=== PATIENT | female | born 1950 | race Caucasian/White ===

== ENCOUNTER 2023-01-18 18:03 | Emergency (ER) | payer MEDICARE, SELFPAY ==
[2023-01-18] VITALS (34 sets, daily range): BP systolic 139–201; BP diastolic 75–131; PULSE 74–101; RESP 22; TEMP 36.1; O2SAT 90–100
--- NOTE | 2023-01-18 18:34 | CRLHL7_ITS ---
For Patients: As a result of the Cures Act, medical imaging exams and procedure reports are released immediately into your electronic medical record. You may view this report before your referring provider. If you have questions, please contact your health care provider. INDICATION: Chest pain. TECHNIQUE: Chest 2 views. COMPARISON: None. FINDINGS: Cardiovascular and mediastinum: Heart size and vasculature are normal in caliber and appearance. Lungs and pleural spaces: Lungs are clear. No sign of infiltrate or mass. No sign of pleural effusion. No pneumothorax. Bones and soft tissues: No significant findings. IMPRESSION: No acute or significant findings. Dictated by Ramsey Valdez MD @ 01/18/2023 7:53:49 PM (Electronically Signed)
[2023-01-18 18:40] LABS: Lactate* 0.9 mmol/L (0.5-1.9)
[2023-01-18] MEDS: ASPIRIN 81 MG TAB.CHEW 324 MG PO (18:42)
--- NOTE | 2023-01-18 18:42 | ED.GENADULT ---
HPI - General Adult General Date Seen: 01/18/23 <Minerva Lagunas MD - Last Filed: 01/23/23 00:24> Chief complaint: Chest Pain <Minerva Lagunas MD - Last Filed: 01/23/23 00:24> Stated complaint: Chest Pain <Minerva Lagunas MD - Last Filed: 01/23/23 00:24> Time Seen by Provider: 01/18/23 18:04 <Minerva Lagunas MD - Last Filed: 01/23/23 00:24> Source: patient <Minerva Lagunas MD - Last Filed: 01/23/23 00:24> Mode of arrival: ambulatory <Minerva Lagunas MD - Last Filed: 01/23/23 00:24> Limitations: no limitations <Minerva Lagunas MD - Last Filed: 01/23/23 00:24> History of Present Illness HPI narrative: Patient is a 72-year-old woman who was sitting watching TV at around 3:30 a.m. or 4:00 a.m. when she developed dull central chest pain which has been persistent. It radiates to the back had perhaps a little bit up into her right neck. She says she feels like it is hard to catch her breath, pain is maybe a little bit pleuritic. She denies fever cough, unusual swelling in her legs, trauma, or other complaints. She does not have any prior history of chest pain or abdominal pain. She is generally reasonably be healthy, she has interstitial lung disease which is mild. She has high cholesterol, blood pressure is normally well controlled. She does not smoke. She drinks 4- 5 nights a week, 1-2 drinks. <Minerva Lagunas MD - Last Filed: 01/23/23 00:24> Related Data Home medications: Home Medications Medication Instructions Recorded Confirmed biotin 5,000 mcg chewable tablet mcg PO 01/06/23 01/06/23 calcium carbonate 600 mg calcium 1,200 mg PO QDAY 01/06/23 01/06/23 (1,500 mg) tablet cholecalciferol (vitamin D3) 25 25 mcg PO QDAY 01/06/23 01/06/23 mcg (1,000 unit) capsule diclofenac sodium 1 % topical gel topical 01/06/23 01/06/23 loratadine 10 mg tablet 10 mg PO QDAY 01/06/23 01/06/23 methylcellulose (laxative) 500 mg 1,000 mg PO QDAY 01/06/23 01/06/23 tablet omeprazole 20 mg capsule,delayed 20 mg PO QDAY 01/06/23 01/06/23 release piroxicam 20 mg capsule 20 mg PO QDAY 01/06/23 01/06/23 simvastatin 20 mg tablet 20 mg PO QHS 01/06/23 01/06/23 sumatriptan succinate 100 mg tablet 100 mg PO PRN 01/06/23 01/06/23 valacyclovir 1 gram tablet 2,000 mg PO PRN 01/06/23 01/06/23 <Minerva Lagunas MD - Last Filed: 01/23/23 00:24> Allergies/adverse reactions: Allergies Allergy/AdvReac Type Severity Reaction Status Date / Time No Known Drug Allergies Allergy Verified 01/18/23 20:01 <Minerva Lagunas MD - Last Filed: 01/23/23 00:24> Review of Systems Status of ROS: Reports: 10 or more systems reviewed and unremarkable except as noted in History and below <Minerva Lagunas MD - Last Filed: 01/23/23 00:24> [facility] Medical History: Medical History Health care directive on file ?Z78.9 - Other specified health status (ICD-10) History of right breast cancer (2017) ?Z85.3 - Personal history of malignant neoplasm of breast (ICD-10) <Minerva Lagunas MD - Last Filed: 01/23/23 00:24> Surgical History: Surgical History History of tubal ligation ?Z98.51 - Tubal ligation status (ICD-10) History of lumpectomy of right breast (2016) ?Z98.890 - Other specified postprocedural states (ICD-10) History of total left knee replacement ?Z96.652 - Presence of left artificial knee joint (ICD-10) History of total right knee replacement (03/31/18) ?Z96.651 - Presence of right artificial knee joint (ICD-10) <Minerva Lagunas MD - Last Filed: 01/23/23 00:24> Family History: Family History Sister Pulmonary embolism <Minerva Lagunas MD - Last Filed: 01/23/23 00:24> Social History: Social History Smoking Status: Former smoker Do you use any of these nicotine containing products: None Second hand tobacco smoke exposure: No How often do you have a drink containing alcohol: 4 or more times a week How many standard drinks containing alcohol do you have on a typical day: 1 or 2 How often do you have six or more drinks on one occasion: Never AUDIT-C Alcohol total score: 4 Non-prescribed substance use: denies use Little interest or pleasure in doing things: several days Feeling down, depressed, or hopeless: several days service: No <Minerva Lagunas MD - Last Filed: 01/23/23 00:24> Exam Narrative: Exam Narrative: Vital signs as noted above. In general, an alert, well-appearing patient. Head: Normocephalic, atraumatic. Eyes: Pupils are equal reactive. Extraocular movements are full. Conjunctivae are normal. ENT: Mucous membranes are moist. Throat is normal. Neck: Supple without lymphadenopathy. Heart: Regular rate and rhythm. No murmur or rub. Lungs: Clear bilaterally. No increased work of breathing, crackles or wheezes. Abdomen: Soft and nontender. No organomegaly. Extremities: Well perfused. No edema. No calf tenderness. Pulses intact. Neurologic: Patient is alert and oriented to person and place. Speech is fluent. Face is symmetric. Moves all extremities equally. Affect: Normal. Skin: Warm and dry. Well perfused. <Minerva Lagunas MD - Last Filed: 01/23/23 00:24> Const: Vital Signs, click to edit/add: Vital Signs - 24 hr 01/18/23 18:08 01/18/23 18:10 01/18/23 18:11 Temperature 96.9 F L Pulse Rate 88 82 Pulse Rate [Pulse Oximeter] 86 Respiratory Rate 22 Blood Pressure 168/131 H Blood Pressure [Le ft Upper Arm] 168/131 H Pulse Oximetry 98 100 99 Oxygen Delivery Me thod Room Air 01/18/23 18:15 01/18/23 18:30 01/18/23 18:32 Temperature Pulse Rate 77 81 77 Pulse Rate [Pulse Oximeter] Respiratory Rate Blood Pressure 183/94 H Blood Pressure [Le ft Upper Arm] Pulse Oximetry 97 92 Oxygen Delivery Me thod 01/18/23 18:34 01/18/23 18:51 01/18/23 18:52 Temperature Pulse Rate 81 Pulse Rate [Pulse Oximeter] Respiratory Rate Blood Pressure 201/98 H Blood Pressure [Le ft Upper Arm] Pulse Oximetry 98 90 Oxygen Delivery Me thod 01/18/23 19:00 01/18/23 19:02 01/18/23 19:15 Temperature Pulse Rate 76 74 75 Pulse Rate [Pulse Oximeter] Respiratory Rate Blood Pressure 195/97 H Blood Pressure [Le ft Upper Arm] Pulse Oximetry 96 97 96 Oxygen Delivery Me thod 01/18/23 19:30 01/18/23 19:32 01/18/23 19:33 Temperature Pulse Rate 80 82 80 Pulse Rate [Pulse Oximeter] Respiratory Rate Blood Pressure 173/82 H Blood Pressure [Le ft Upper Arm] Pulse Oximetry 96 96 96 Oxygen Delivery Me thod 01/18/23 19:54 01/18/23 19:55 01/18/23 20:00 Temperature Pulse Rate 90 87 90 Pulse Rate [Pulse Oximeter] Respiratory Rate Blood Pressure 188/97 H Blood Pressure [Le ft Upper Arm] Pulse Oximetry 94 95 94 Oxygen Delivery Me thod 01/18/23 20:02 01/18/23 20:11 01/18/23 20:15 Temperature Pulse Rate 89 85 83 Pulse Rate [Pulse Oximeter] Respiratory Rate Blood Pressure 166/88 H 157/89 H Blood Pressure [Le ft Upper Arm] Pulse Oximetry 93 95 95 Oxygen Delivery Me thod 01/18/23 20:22 Temperature Pulse Rate 84 Pulse Rate [Pulse Oximeter] Respiratory Rate Blood Pressure 158/85 H Blood Pressure [Le ft Upper Arm] Pulse Oximetry 95 Oxygen Delivery Me thod <Minerva Lagunas MD - Last Filed: 01/23/23 00:24> Vital Signs, click to edit/add: Vital Signs - 24 hr 01/18/23 18:08 01/18/23 18:10 01/18/23 18:11 Temperature 96.9 F L Pulse Rate 88 82 Pulse Rate [Pulse Oximeter] 86 Respiratory Rate 22 Blood Pressure 168/131 H Blood Pressure [Le ft Upper Arm] 168/131 H Pulse Oximetry 98 100 99 Oxygen Delivery Me thod Room Air 01/18/23 18:15 01/18/23 18:30 01/18/23 18:32 Temperature Pulse Rate 77 81 77 Pulse Rate [Pulse Oximeter] Respiratory Rate Blood Pressure 183/94 H Blood Pressure [Le ft Upper Arm] Pulse Oximetry 97 92 Oxygen Delivery Me thod 01/18/23 18:34 01/18/23 18:51 01/18/23 18:52 Temperature Pulse Rate 81 Pulse Rate [Pulse Oximeter] Respiratory Rate Blood Pressure 201/98 H Blood Pressure [Le ft Upper Arm] Pulse Oximetry 98 90 Oxygen Delivery Me thod 01/18/23 19:00 01/18/23 19:02 01/18/23 19:15 Temperature Pulse Rate 76 74 75 Pulse Rate [Pulse Oximeter] Respiratory Rate Blood Pressure 195/97 H Blood Pressure [Le ft Upper Arm] Pulse Oximetry 96 97 96 Oxygen Delivery Me thod 01/18/23 19:30 01/18/23 19:32 01/18/23 19:33 Temperature Pulse Rate 80 82 80 Pulse Rate [Pulse Oximeter] Respiratory Rate Blood Pressure 173/82 H Blood Pressure [Le ft Upper Arm] Pulse Oximetry 96 96 96 Oxygen Delivery Me thod 01/18/23 19:54 01/18/23 19:55 01/18/23 20:00 Temperature Pulse Rate 90 87 90 Pulse Rate [Pulse Oximeter] Respiratory Rate Blood Pressure 188/97 H Blood Pressure [Le ft Upper Arm] Pulse Oximetry 94 95 94 Oxygen Delivery Me thod 01/18/23 20:02 01/18/23 20:11 01/18/23 20:15 Temperature Pulse Rate 89 85 83 Pulse Rate [Pulse Oximeter] Respiratory Rate Blood Pressure 166/88 H 157/89 H Blood Pressure [Le ft Upper Arm] Pulse Oximetry 93 95 95 Oxygen Delivery Me thod 01/18/23 20:22 Temperature Pulse Rate 84 Pulse Rate [Pulse Oximeter] Respiratory Rate Blood Pressure 158/85 H Blood Pressure [Le ft Upper Arm] Pulse Oximetry 95 Oxygen Delivery Me thod <Jovtia Eagle MD - Last Filed: 01/18/23 21:29> Course Course Hospital Course: EKG done on arrival by my review shows a normal sinus rhythm, ventricular rate of 78. No acute ST segment changes. T-waves are unremarkable. Point of care troponin is pending. Would recommend a 2nd 2 hour troponin assuming the 1st is normal. D-dimer pending. She is hypertensive, diagnostic considerations include hypertensive urgency, angina, acute coronary syndrome, dissection, pulmonary embolism, pneumonia, pleural effusion, pneumothorax, biliary colic among others. I have ordered an aspirin. Blood pressure remains significantly elevated up to 200 systolic. I did give her a nitroglycerin and most recent blood pressure was 158/85. Her labs were unremarkable, white blood cell count is normal at 9.2, hemoglobin 13.3. D-dimer was normal for age at 0.67. Metabolic panel normal, LFTs unremarkable and lipase 94. Initial point of care troponin was 0.01, a 2 hour troponin was 0.02. I did elect to do a CT scan to rule out dissection given her elevated blood pressures here. This has not yet been read by Radiology. I was asked to follow up on the patient's CT scan: No evidence of dissection or other abnormality causing her discomfort. Patient discharged home at this time with follow-up plan already discussed with previous physician. <Minerva Lagunas MD - Last Filed: 01/23/23 00:24> Vital Signs Vital signs: Initial Vital Signs Temperature 96.9 F L 01/18/23 18:08 Temperature Source Temporal Artery Scan 01/18/23 18:08 Pulse Rate 86 01/18/23 18:08 Pulse Rhythm Regular 01/18/23 18:08 Respiratory Rate 22 01/18/23 18:08 Blood Pressure 168/131 H 01/18/23 18:08 Blood Pressure Mean 143 H 01/18/23 18:08 Blood Pressure Position Supine 01/18/23 18:08 Pulse Oximetry 98 01/18/23 18:08 Oxygen Delivery Method Room Air 01/18/23 18:08 Vital Signs Temperature 96.9 F L 01/18/23 18:08 Pulse Rate 86 01/18/23 18:08 Respiratory Rate 22 01/18/23 18:08 Blood Pressure 168/131 H 01/18/23 18:08 Pulse Oximetry 98 01/18/23 18:08 Oxygen Delivery Method Room Air 01/18/23 18:08 Temperature 96.9 F L 01/18/23 18:08 Pulse Rate 83 01/18/23 21:32 Respiratory Rate 22 01/18/23 18:08 Blood Pressure 153/75 H 01/18/23 21:32 Pulse Oximetry 96 01/18/23 21:32 Oxygen Delivery Method Room Air 01/18/23 18:08 <Minerva Lagunas MD - Last Filed: 01/23/23 00:24> Initial Vital Signs Temperature 96.9 F L 01/18/23 18:08 Temperature Source Temporal Artery Scan 01/18/23 18:08 Pulse Rate 86 01/18/23 18:08 Pulse Rhythm Regular 01/18/23 18:08 Respiratory Rate 22 01/18/23 18:08 Blood Pressure 168/131 H 01/18/23 18:08 Blood Pressure Mean 143 H 01/18/23 18:08 Blood Pressure Position Supine 01/18/23 18:08 Pulse Oximetry 98 01/18/23 18:08 Oxygen Delivery Method Room Air 01/18/23 18:08 Vital Signs Temperature 96.9 F L 01/18/23 18:08 Pulse Rate 86 01/18/23 18:08 Respiratory Rate 22 01/18/23 18:08 Blood Pressure 168/131 H 01/18/23 18:08 Pulse Oximetry 98 01/18/23 18:08 Oxygen Delivery Method Room Air 01/18/23 18:08 Temperature 96.9 F L 01/18/23 18:08 Pulse Rate 83 01/18/23 21:32 Respiratory Rate 22 01/18/23 18:08 Blood Pressure 153/75 H 01/18/23 21:32 Pulse Oximetry 96 01/18/23 21:32 Oxygen Delivery Method Room Air 01/18/23 18:08 <Jovita Eagle MD - Last Filed: 01/18/23 21:29> Medical Decision Making Lab Data Labs: Lab Results 01/18/23 01/18/23 Range/Units 18:26 20:31 WBC 9.20 (4.50-11.00) K/uL RBC 4.54 (4.00-5.20) m/uL Hgb 13.3 (12.0-16.0) gm/dL Hct 41.6 (33.0-51.0) % MCV 92 (80-100) fL MCH 29 (26-34) pg MCHC 32 (32-36) gm/dL RDW Coeff of Cornelius 13.5 (11.5-15.5) % Plt Count 367 (140-440) K/uL Neut % (Auto) 69.8 (42.0-72.0) % Lymph % (Auto) 16.5 L (20-44) % Garvin % (Auto) 9.5 (0.0-11.0) % Eos % (Auto) 2.9 (0.0-7.0) % Baso % (Auto) 1.1 (0.0-3.0) % Neut # (Auto) 6.42 (1.7-7.0) K/uL Lymph # (Auto) 1.50 (0.90-2.90) K/uL Garvin # (Auto) 0.90 (0.00-0.90) K/UL Eos # (Auto) 0.27 (0.00-0.50) K/uL Baso # (Auto) 0.10 (0.00-0.30) K/uL Abs Immat Gran (auto) 0.02 (0.00-0.30) K/uL Imm/Tot Granulo (auto) 0.2 % D-Dimer Quant (PE/DVT) 0.67 H (0.00-0.50) ug/ml Sodium 139 (135-149) mmol/L Potassium 3.7 (3.6-5.1) mmol/L Chloride 100 (96-114) mmol/L Carbon Dioxide 32 (20-32) mmol/L BUN 26 (7-30) mg/dL Creatinine 1.3 (0.5-1.5) mg/dL Estimated Creat Clear 33.78 Estimated GFR 44 ml/min Glucose 99 (60-115) mg/dL Lactate 0.9 (0.5-1.9) mmol/L Calcium 9.2 (8.4-10.6) mg/dL Total Bilirubin 0.4 (0.1-1.5) mg/dL Direct Bilirubin 0.0 (0.0-0.5) mg/dL AST 32 (12-35) U/L ALT 26 (4-35) U/L Alkaline Phosphatase 52 (40-150) U/L C-Reactive Protein 0.6 (0.5-1.0) mg/dL Total Protein 7.4 (6.0-8.3) g/dL Albumin 4.3 (3.3-5.0) g/dL Lipase 94 (23-300) U/L POC Troponin I 0.01 0.02 (0.01-0.04) ng/ml <Minerva Lagunas MD - Last Filed: 01/23/23 00:24> Lab Results 01/18/23 01/18/23 Range/Units 18:26 20:31 WBC 9.20 (4.50-11.00) K/uL RBC 4.54 (4.00-5.20) m/uL Hgb 13.3 (12.0-16.0) gm/dL Hct 41.6 (33.0-51.0) % MCV 92 (80-100) fL MCH 29 (26-34) pg MCHC 32 (32-36) gm/dL RDW Coeff of Cornelius 13.5 (11.5-15.5) % Plt Count 367 (140-440) K/uL Neut % (Auto) 69.8 (42.0-72.0) % Lymph % (Auto) 16.5 L (20-44) % Garvin % (Auto) 9.5 (0.0-11.0) % Eos % (Auto) 2.9 (0.0-7.0) % Baso % (Auto) 1.1 (0.0-3.0) % Neut # (Auto) 6.42 (1.7-7.0) K/uL Lymph # (Auto) 1.50 (0.90-2.90) K/uL Garvin # (Auto) 0.90 (0.00-0.90) K/UL Eos # (Auto) 0.27 (0.00-0.50) K/uL Baso # (Auto) 0.10 (0.00-0.30) K/uL Abs Immat Gran (auto) 0.02 (0.00-0.30) K/uL Imm/Tot Granulo (auto) 0.2 % D-Dimer Quant (PE/DVT) 0.67 H (0.00-0.50) ug/ml Sodium 139 (135-149) mmol/L Potassium 3.7 (3.6-5.1) mmol/L Chloride 100 (96-114) mmol/L Carbon Dioxide 32 (20-32) mmol/L BUN 26 (7-30) mg/dL Creatinine 1.3 (0.5-1.5) mg/dL Estimated Creat Clear 33.78 Estimated GFR 44 ml/min Glucose 99 (60-115) mg/dL Lactate 0.9 (0.5-1.9) mmol/L Calcium 9.2 (8.4-10.6) mg/dL Total Bilirubin 0.4 (0.1-1.5) mg/dL Direct Bilirubin 0.0 (0.0-0.5) mg/dL AST 32 (12-35) U/L ALT 26 (4-35) U/L Alkaline Phosphatase 52 (40-150) U/L C-Reactive Protein 0.6 (0.5-1.0) mg/dL Total Protein 7.4 (6.0-8.3) g/dL Albumin 4.3 (3.3-5.0) g/dL Lipase 94 (23-300) U/L POC Troponin I 0.01 0.02 (0.01-0.04) ng/ml <Jovita Eagle MD - Last Filed: 01/18/23 21:29> Imaging Data CT Chest/Ab/Pelvis: Attestation: I have reviewed the pertinent imaging results. <Jovita Eagle MD - Last Filed: 01/18/23 21:29> Radiologist's impression: CT chest without contrast and CT chest, abdomen and pelvis acquired with 100 cc Isovue 370 IV contrast, dissection protocol. COMPARISON: None. FINDINGS: CHEST: Cardiovascular structures: The unenhanced images demonstrate no evidence of aortic intramural thrombus. Incidental aberrant right subclavian artery. Thoracic aorta is normal in caliber without evidence of dissection. Heart size is normal. Mediastinum and liliana: No mass or adenopathy. Lungs and pleura: Scattered atelectasis. Lungs are clear. No pleural effusions. No pneumothorax. Chest wall and axilla: No mass or adenopathy. Bones: Unremarkable for age. ABDOMEN AND PELVIS: Liver: Unremarkable. Gallbladder and bile ducts: Unremarkable. Pancreas: Unremarkable. Spleen: Unremarkable. Adrenal glands: Unremarkable. Kidneys: Left simple renal cyst. No hydronephrosis. GI tract: Colonic diverticulosis. Mild colonic stool burden. No bowel obstruction. Normal appendix. Vascular structures: Moderate aortoiliac arterial calcifications. Abdominal aorta is normal in caliber without evidence of dissection. Mesenteric arteries are patent. Lymph nodes: Unremarkable. Miscellaneous: Unremarkable. No free air or significant free fluid. Pelvic Organs: Mildly distended bladder. Bones: Unremarkable for age. IMPRESSION: No intrathoracic or intra-abdominal aortic aneurysm or dissection as questioned. Coronary artery calcifications. No focal consolidations. Chronic interstitial pulmonary changes. Colonic diverticulosis without diverticulitis. <Jovita Eagle MD - Last Filed: 01/18/23 21:29> Discharge Plan Discharge Clinical Impression: Chest pain <Minerva Lagunas MD - Last Filed: 01/23/23 00:24> Patient Disposition: Home, Self-Care <Minerva Lagunas MD - Last Filed: 01/23/23 00:24> Condition: Improved <Minerva Lagunas MD - Last Filed: 01/23/23 00:24> Instructions: Chest Pain (DC) <Minerva Lagunas MD - Last Filed: 01/23/23 00:24> Additional Instructions: Primary care recheck this coming week. Return at any time for acute severe symptoms. <Minerva Lagunas MD - Last Filed: 01/23/23 00:24> Prescriptions: No Action sumatriptan succinate 100 mg tablet 100 mg PO PRN Patient Comments: TAKE 1 TABLET BY MOUTH NEEDED FOR MIGRAINE MAY TAKE ONE ADDITIONAL TABLET IN 2 HOURS IF HEADACHE PERSISTS MAXIMUM OF 2 TABLETS IN 24 HOURS loratadine 10 mg tablet 10 mg PO QDAY Patient Comments: TAKE 1 TABLET BY MOUTH DAILY omeprazole 20 mg capsule,delayed release(DR/EC) 20 mg PO QDAY Patient Comments: TAKE ONE CAPSULE BY MOUTH DAILY 1 HOUR BEFORE A MEAL simvastatin 20 mg tablet 20 mg PO QHS Patient Comments: TAKE 1 TABLET BY MOUTH DAILY AT BEDTIME piroxicam 20 mg capsule 20 mg PO QDAY Patient Comments: TAKE ONE CAPSULE BY MOUTH DAILY NEEDED diclofenac sodium 1 % gel topical Patient Comments: APPLY 2 GRAMS TO SKIN FOUR TIMES DAILY. valacyclovir 1 gram tablet 2,000 mg PO PRN Patient Comments: TAKE 2 TABLETS BY MOUTH TWICE DAILY FOR 1 DAY AT THE FIRST SIGN OF A COLD SORE methylcellulose (laxative) 500 mg tablet 1,000 mg PO QDAY cholecalciferol (vitamin D3) 25 mcg (1,000 unit) capsule 25 mcg PO QDAY calcium carbonate 600 mg calcium (1,500 mg) tablet 1,200 mg PO QDAY biotin 5,000 mcg tablet,chewable PO <Minerva Lagunas MD - Last Filed: 01/23/23 00:24> Follow Up/Referrals: Winsome Reich MD [Primary Care Provider] - <Minerva Lagunas MD - Last Filed: 01/23/23 00:24> Stand Alone [facility]: [facility] <Minerva Lagunas MD - Last Filed: 01/23/23 00:24>
[2023-01-18 18:43] LABS: Basophils Percent Auto 1.1 % (0.0-3.0); Eosinophils Absolute Auto 0.27 K/uL (0.00-0.50); Eosinophils Percent Auto 2.9 % (0.0-7.0); Hematocrit 41.6 % (33.0-51.0); Hemoglobin* 13.3 gm/dL (12.0-16.0); Immature Granulocytes Abs Auto 0.02 K/uL (0.00-0.30); Immature Granulocytes Pct Auto 0.2 %; Lymphocytes Percent Auto 16.5 % (20-44); Mean Corpuscular HGB Conc 32 gm/dL (32-36); Mean Corpuscular Hemoglobin 29 pg (26-34); Mean Corpuscular Volume 92 fL (80-100); Monocytes Percent Auto 9.5 % (0.0-11.0); Neutrophils Absolute Auto 6.42 K/uL (1.7-7.0); Neutrophils Percent Auto 69.8 % (42.0-72.0); Platelet Count* 367 K/uL (140-440); RDW Coefficient of Variation % 13.5 % (11.5-15.5); Red Blood Count 4.54 m/uL (4.00-5.20); Slide Review Reflex No
[2023-01-18 18:48] LABS: Troponin, Point-of-Care* 0.01 ng/ml (0.01-0.04)
[2023-01-18 18:59] LABS: Albumin* 4.3 g/dL (3.3-5.0); Chloride* 100 mmol/L (96-114)
[2023-01-18 19:00] LABS: Potassium* 3.7 mmol/L (3.6-5.1); Sodium* 139 mmol/L (135-149)
[2023-01-18 19:02] LABS: Creatinine* 1.3 mg/dL (0.5-1.5); Est. Creatinine Clearance* 33.78; Estimated Glomerular Filt Rate 44 ml/min
[2023-01-18 19:03] LABS: Alanine Aminotransferase* 26 U/L (4-35); Alkaline Phosphatase* 52 U/L (40-150); Aspartate Amino Transferase* 32 U/L (12-35); Bilirubin Total* 0.4 mg/dL (0.1-1.5); Blood Urea Nitrogen* 26 mg/dL (7-30); Calcium* 9.2 mg/dL (8.4-10.6); Carbon Dioxide* 32 mmol/L (20-32); Glucose* 99 mg/dL (60-115); Lipase* 94 U/L (23-300); Total Protein* 7.4 g/dL (6.0-8.3)
[2023-01-18 19:06] LABS: C Reactive Protein* 0.6 mg/dL (0.5-1.0)
[2023-01-18 19:18] LABS: D Dimer Quantitative* 0.67 ug/ml (0.00-0.50)
--- NOTE | 2023-01-18 19:25 | CRLHL7_ITS ---
For Patients: As a result of the Century Cures Act, medical imaging exams and procedure reports are released immediately into your electronic medical record. You may view this report before your referring provider. If you have questions, please contact your health care provider. INDICATION: Chest pain. Hypertension. TECHNIQUE: CT chest without contrast and CT chest, abdomen and pelvis acquired with 100 cc Isovue 370 IV contrast, dissection protocol. COMPARISON: None. FINDINGS: CHEST: Cardiovascular structures: The unenhanced images demonstrate no evidence of aortic intramural thrombus. Incidental aberrant right subclavian artery. Thoracic aorta is normal in caliber without evidence of dissection. Heart size is normal. Mediastinum and liliana: No mass or adenopathy. Lungs and pleura: Scattered atelectasis. Lungs are clear. No pleural effusions. No pneumothorax. Chest wall and axilla: No mass or adenopathy. Bones: Unremarkable for age. ABDOMEN AND PELVIS: Liver: Unremarkable. Gallbladder and bile ducts: Unremarkable. Pancreas: Unremarkable. Spleen: Unremarkable. Adrenal glands: Unremarkable. Kidneys: Left simple renal cyst. No hydronephrosis. GI tract: Colonic diverticulosis. Mild colonic stool burden. No bowel obstruction. Normal appendix. Vascular structures: Moderate aortoiliac arterial calcifications. Abdominal aorta is normal in caliber without evidence of dissection. Mesenteric arteries are patent. Lymph nodes: Unremarkable. Miscellaneous: Unremarkable. No free air or significant free fluid. Pelvic Organs: Mildly distended bladder. Bones: Unremarkable for age. IMPRESSION: No intrathoracic or intra-abdominal aortic aneurysm or dissection as questioned. Coronary artery calcifications. No focal consolidations. Chronic interstitial pulmonary changes. Colonic diverticulosis without diverticulitis. Please note that all CT scans at this facility use dose modulation, iterative reconstruction, and/or weight-based dosing when appropriate to reduce radiation dose to as low as reasonably achievable. Dictated by Ramsey Valdez MD @ 01/18/2023 9:22:39 PM (Electronically Signed) ----- ADDENDUM ----- Addendum: When compared to prior chest CT performed February 11, 2022, chronic interstitial pulmonary changes appear to have mildly increased. Few additional stable tiny pulmonary nodules. When compared to prior CT abdomen/pelvis performed March 20, 2018, no significant interval change. Dictated by Ramsey Valdez MD @ Jan 30 2023 10:57AM (Electronic Signature)
[2023-01-18] MEDS: NITROGLYCERIN 0.4 MG TAB.SUBL SUBLINGUAL (19:55)
--- NOTE | 2023-01-18 19:55 | ED.NURSE ---
patient states that she thought her pain was going away but she started having pain again when she was moving around going to CT scan. Notified.
[2023-01-18 20:46] LABS: Troponin, Point-of-Care* 0.02 ng/ml (0.01-0.04)
== END 2023-01-18 21:56 | disposition home or self-care (01) ==
PROVIDERS: Emergency Provider Emergency Medicine; PCP Internal Medicine
DX: R07.9 Chest pain, unspecified (principal)
CPT/HCPCS: 36415; 71046; 71270; 74177; 80048; 80076; 83605; 83690; 84484; 85025; 85379; 86140; 93005; 94761; 99284; 99285; A9270; Q9967

== ENCOUNTER 2023-02-11 12:41 | Outpatient (CLI) | payer MEDICARE, SELFPAY ==
[2023-02-11 13:35] VITALS: BP 170/86; PULSE 83; RESP 16
--- NOTE | 2023-02-11 14:25 | W.PM.STED ---
Stress Test Note Date Date of test: 02/11/23 Providers Primary care provider: Winsome Reich Stress test physician: Praful Palencia Stress Test Note Stress test ordered: Stress Echo Indication for test: Chest pain Results discussion: This very pleasant 72-year-old female presents for the above test after discussion the risks benefits and side effects she would like to proceed pretest EKG shows normal sinus rhythm, with a ventricular rate of 78 blood pressure 144/90. No acute ST wave changes are notable. Cardiac stress test history form is reviewed. Following standard [facility] protocol patient is exercised for a total time of 7 minutes, achieved a metabolic equivalent of 8.5 Mets with a maximum heart rate of 142 which is 112% of the maximum, during this test she had no chest pain no shortness of breath, no other anginal equivalents are noted, test is terminated because of fulfillment of protocol, review of the tracing shows no acute ST wave changes suggestive of ischemia. There were no ventricular/atrial arrhythmias Impression: Negative electrographic portion of stress echo, conditioning was felt to be get Follow up suggested: Patient will be discharged home, await echo read by Cardiology, clinical correlation with the above will be needed, there were no complications and she left this testing facility in good condition
== END 2023-02-11 13:42 | disposition home or self-care (01) ==
LOC: STRESS 12:41
PROVIDERS: PCP Internal Medicine; Visit Provider Family Medicine
DX: R07.89 Other chest pain (principal); I35.1 Nonrheumatic aortic (valve) insufficiency
CPT/HCPCS: 93016; 93325; 93351

== ENCOUNTER 2023-11-07 09:01 | Outpatient (CLI) | payer MEDICARE, SELFPAY ==
--- OUTSIDE RECORDS SUMMARY | 2023-11-11 20:34 | XMS_ITS | Continuity of Care Document ---
Author Organization [facility] Address [address] [address] [place] [address] Phone Care Team Providers Care Sound Effects Manager Name Role Phone Xu Davison MD, Andreas Lane Unavailabl e Allergies, Adverse Reactions, Alerts Substance Reaction Status Criticality No Known Allergies Active No Inform ation Medications Medication Instructions Dosage Effective Dates (start - stop) Status Comments simvastatin 20 mg tablet take 1 tablet by oral route every day in the evening 20 MG - Active sumatriptan 100 mg tablet take 1 tablet by oral route after onset of migraine; may repeat after 2 hours if headache returns,not to exceed 200mg in 24hrs as needed 100 MG - Active calcium carbonate 600 mg calcium (1,500 mg) tablet take 2 tablets by oral route every day 2 tablets - Active diclofenac 1 % topical gel apply (2G) by topical route 4 times every day to the affected area(s) as needed 2 G - Active piroxicam 20 mg capsule take 1 capsule by oral route every day 20 MG - Active zoledronic acid 5 mg/100 mL in mannitol 5 %-water intravenous piggybck adminster 5 mg by intravenously route every year 5 mg - Active biotin 5,000 mcg sublingual tablet - Active Citrucel oral powder PO - Activ e Vitamin D3 1,000 unit capsule take 1 Capsule by Oral route every day 1 Capsule - Active omeprazole 20 mg capsule,delayed release take 1 capsule by oral route every day before a meal 20 MG - Active acyclovir 400 mg tablet take 2 tablet by oral route every 4 hours for 10 days while awake as needed 800 MG - Active Procedures Procedure Date Colorectal Ca Screen Hi Risk I Colorectal Ca Screen Hi Risk I Colonoscopy Flex; Dx (sep Pro) 14 Colonoscopy Flex; W/bx 1/mx Level Iv-surg Path Gross/micro 09 Advance Directives Directive Yes / No Effective Date File Name No Information Encounters Encounter Description Practice Location Reason(s) For Visit Diagnoses Date Provider Providers Copied on Encounter [facility], [address] [address], [place], [place], [address], [place] tel:[phone] [facility] No Information Xu Johns. [address] [facility], [facility] [address], [place], [place], [address] , [place]. [phone] [facility], [address] [address], [place], [address], [place] tel:[phone] [facility] Diverticulosis of colonHistory of adenomatous polyp of colonEncounter for screening for malignant neoplasm of colonDvrtclos of lg int w/o perforation or abscess w/o bleedingPersonal history of colonic polyps 9 Pablo Arias. [address] [facility], [place], [place], [address] , [place]. [phone] Referring Provider: [place], [address], [place], [address]. tel:[phone] [facility], [address] [address], [place], [place], [address], [place] tel:[phone] [facility] Personal history of colonic polypsEncounter for screening for malignant neoplasm of colonPersonal history of colonic polyps 9 Danita Bautista. [address] [facility], [place], [place], [address] , [place]. tel:[phone] Referring [place], [address] [place], [address]. tel:[phone] [facility], [address] [address], [place], [place], [address], [place] tel:[phone] [facility] Diverticulosis Of ColonPersonal History Colon PolypsDiverticulosi s Of ColonPersonal History Colon Polyps 4 Arlette Kim . [address] [facility], [facility] [address], [place], [place], [address] , [place]. tel:[phone] Referring Provider: Fariba Ross CNP, [address] [place], [address]. tel:[phone] [facility], [address] [address], [place], [place], [address], [place] tel:[phone] [facility] Colon Cancer ScreeningDiverticul osis Of ColonRectal Polyp/Benign 9 Pablo Arias. [address] [facility], [place], [place], [address] , [place]. tel:[phone] Referring Provider: Jessica Phillip MD S, [address], [address] . tel:[phone] Family History Family Member Type Diagnosis Age At Onset Father Problem (finding) Mother Problem (finding) diverticulitis of colon Sister Problem (finding) diverticulitis of colon Sister Problem (finding) Crohn's disease Sister Problem (finding) malignant neop lasm of breast in first degree relative Sister Problem (finding) Alive and well Son Problem (finding) Alive and well Brother Problem (finding) Alive and well Sister Problem (finding) Colon polyps Payers Payer name Insurance type Covered green party ID Authoriza tion(s) No Information Social History Type Description Quantity Date Captured Comments Sex Female Smoking Status No Information Chief Complaint And Reason For Visit No Information Reason For Referral Reason For Referral No Information Plan Of Treatment Date Type Action Status Appointment Latoya Alvarenga BOOKED History Of Present Illness Encounter Date Complaint History Of Prese nt Illness No Information Functional Status Date Functional Assessmen t No Information Instructions Date Instruction Additional Infor mation No Information Assessments Type Assessment Date No Information Patient Care Teams Name Effective Dates (start - stop) Status Members No Information
--- OUTSIDE RECORDS SUMMARY | 2023-11-11 20:34 | XMS_ITS | Continuity of Care Document ---
Author Organization [facility] Address [address] [place] [address] Phone Care Team Providers Care Nat Instructor Name Role Phone Clinton Garcia MD Unavailable Unavailable Allergies, Adverse Reactions, Alerts Substance Reaction Status Criticality No Known Allergies Active No Inform ation Medications Medication Instructions Dosage Effective Dates (start - stop) Status Comments VITAMIN D3 (unknown strength) Not Available - Active BIOTIN (unknown strength) Not Available - Active PIROXICAM (unknown strength) Not Available - Active OMEPRAZOLE (unknown strength) Not Available - Active SUMATRIPTAN SUCCINATE (unknown strength) Not Available - Active SIMVASTATIN (unknown strength) Not Available - Active Procedures Procedure Date Office/Outpatient Visit,Est, Low 2022 Office/Outpatient Visit,New, Mod 2022 X-Ray Exam Lwr Spine, Min 4 Views X-Ray Exam Of Neck Spine, 4+ Views Advance Directives Directive Yes / No Effective Date File Name No Information Encounters Encounter Description Practice Location Reason(s) For Visit Diagnoses Date Provider Providers Copied on Encounter Office/Outpati ent Visit,Est, Low [facility], [address], [place], [place], [address], [place] tel:[phone] [facility] Other spondylosis, lumbar regionOther spondylosis, cervical region Jose Alonzo. [facility], [address] [place] [address] [address], [place], [place], [address], [place]. tel:[phone] Referring Provider: Carlos Umanzor, [facility] [address], [place], [address]. tel:[phone] Office/Outpati ent Visit,New, Mod [facility], [address], [place], [place], [address], tel:[phone] [facility] Other spondylosis, lumbar regionOther spondylosis, cervical region Christiano Gonzalez. [facility], [address], [place], [place], [address], [place]. tel:[phone] Referring Provider: Carlos Umanzor, [facility] [address], [place], [address]. tel:[phone] Family History Family Member Type Diagnosis Age At Onset No Information Payers Payer name Insurance type Covered libertarian ID Jimi tinoco(s) BCBS [id number] Medicare [facility] [id number] Social History Type Description Quantity Date Captured Comments Alcohol Use Details Unknown Caffeine Use Details Unknown Tobacco Use Status No Information Smoking Status Former smoker Non-Smoking Tobacco Use Details : No Details Available : No Details Available Sex Female Vital Signs Date / Time: Height Weight BMI Pulse Rate Blood Pressure Temperature Respiratory Rate Body Surface Area Head Circumference Head Circ. Percentile Wt./Louie. Percentile BMI percentile Pulse Ox Inhaled Ox 10:46 AM 63.50 in 86.636 kg (191.00 lbs) 33.3 0 kg/m eter (2) Chief Complaint And Reason For Visit No Information Reason For Referral Reason For Referral No Information History Of Present Illness Encounter Date Complaint History Of Prese nt Illness No Information Functional Status Date Functional Assessmen t No Information Instructions Date Instruction Additional Infor mation No Information Assessments Type Assessment Date No Information Patient Care Teams Name Effective Dates (start - stop) Status Members No Information
--- OUTSIDE RECORDS SUMMARY | 2023-11-11 20:35 | XMS_ITS ---
Author Organization [facility] Address [address] [place] [address] Care Team Providers Care Pre Algebra Teacher Name Role Phone Carin Hollis MD Primary Care Provider [phone] Active Problems Problem Noted Date Diagnosed Date ILD (interstitial lung disease) 07/14/2020 Primary osteoarthritis involving multiple joints 08/19/2019 History of total bilateral knee replacement 03/16 Malignant neoplasm of right female breast 2016 Cancer Staging:Clinical: Unsigned Pathologic:Stage IA(T1c, N0, cM0) - Signed by Tami Hughes MBBS on 10/23/2023 Primary osteoarthritis of both hands 08/30/2016 Osteoporosis 08/12/2015 Microscopic hematuria 01/31/2015 Overview: Negative work up in 2012 Plantar fasciitis 01/31/2015 Pre-diabetes 03/12/2013 H/O cold sores 01/08/2013 Gastroesophageal reflux disease without esophagi tis 06/06/2011 Migraine without aura and wi thout status migrainosus, not intractable 06/04/2010 Vitamin D deficiency 02/15/2009 Benign neoplasm of colon 02/09/2009 Overview: Adenomatous ; Polyp Colon Mixed hyperlipidemia 03/26/2004 Intervertebral disc disorder 03/26/2004 Overview: LW Modifier: s/p epidural injection LW Onset: 13Jbd27 ; Herniated Disc Family history of pulmonary embolism Overview: Two sisters Current Oncology Plans No current plan information found. Past Plans Radiation Treatments * No radiation treatments are documented for this patient in [facility]. Treatments may have been administered in another system. Resolved Problems Problem Noted Date Diagnosed Date Resolved Date Mild intermittent asthma, uncomplicated 07/14/2020 04/17/2021 Primary osteoarthritis of left knee 11/16/2018 09/01/2019 Pain due to total right knee replacement 11/16/2018 03/25/2019 Primary osteoarthritis of both knees 03/11/2012 03/25/2019 Symptomatic menopausal or fe male climacteric states 03/26/2004 08/09/2005 Overview: LW Onset: 48Ycc72 ; Hot Flashes Diverticulosis of large intestine 03/26/2004 01/31/2015 Overview: Diverticulosis Colon Herpes simplex virus (HSV) infection 03/26/2004 05/26/2004 Overview: LW Onset: 64Lha01 ; Herpes Simplex Labialis
--- OUTSIDE RECORDS SUMMARY | 2023-11-11 20:35 | XMS_ITS | Clinical Summary ---
Author Organization [facility] Address [place], [place] [address] Care Team Providers Care Tours Hostess Name Role Phone Lisa Hoyt Primary Care Provider [phone] Allergies Active Allergy Reactions Criticality Noted Date Comments Unlisted Allergen (Include Detail In Comments) Nausea And Vomiting 03/26/2018 Patient experienced nausea and vomiting for two days following lumpectomy under general anesthesia on 07/03/17 Medications Medication Sig Dispensed Refills Start Date End Date Status biotin 5,000 mcg TbDi Take 5,000 mcg by mouth once daily. Active diclofenac 1 % topical (VOLTAREN) gel Apply topically to affected area(s) 4 times daily if needed. Active omeprazole (PRILOSEC) 20 mg Delayed-Release capsule Take 20 mg by mouth once daily before a meal. Active SUMAtriptan (IMITREX) 100 mg tablet Take 100 mg by mouth 2 times daily if needed for Migraine. Give at minimum 2hrs apart. Max Dose: 200mg per 24hrs. Active zoledronic acid in mannitol & water (RECLAST) 5 mg/100 mL infusion Inject 5 mg intravenous one time. Active calcium carbonate/vitamin D3 (CALTRATE 600 + D ORAL) Take 1 tablet by mouth 2 times daily. Active methylcellulose, Laxative, (CITRUCEL) 500 mg tab Take 1 tablet by mouth once daily. Active acyclovir (ZOVIRAX) 200 mg capsule Take 200 mg by mouth 5 times daily. For 2 days. As needed for outbreaks Active cephalexin (KEFLEX) 500 mg capsule Take 500 mg by mouth 2 times daily. X 7 days Active simvastatin (ZOCOR) 20 mg tablet Take 20 mg by mouth once daily with evening meal. Active piroxicam (FELDENE) 20 mg capsule Take 20 mg by mouth once daily with a meal. Active oxyCODONE (ROXICODONE) 5 mg immediate release tabletIndications:Pr imary osteoarthritis of left knee Take 1-2 tablets by mouth every 4 hours if needed for pain. 30 tablet 04/02/2019 Active acetaminophen (TYLENOL EXTRA STRGTH) 500 mg tabletIndications:Pr imary osteoarthritis of left knee Take 1-2 tablets by mouth every 6 hours if needed. Max acetaminophen dose: 4000mg in 24 hrs. 100 tablet 04/02/2019 Active ibuprofen (ADVIL; MOTRIN) 600 mg tabletIndications:Pr imary osteoarthritis of left knee Take 1 tablet by mouth every 6 hours if needed for Pain (Take with food). Maximum of 3200 mg in 24 hours. 40 tablet 04/02/2019 Active sennosides-docusate, 8.6-50 mg, (SENOKOT S) 8.6-50 mg tabletIndications:Pr imary osteoarthritis of left knee Take 1 tablet by mouth 2 times daily if needed for Constipation (Hold for loose stools). 100 tablet 04/02/2019 Active Active Problems Problem Noted Date Diagnosed Date Primary osteoarthritis of left knee 03/31/2019 Primary osteoarthritis of right knee 03/30/2018 GERD (gastroesophageal reflux disease) Hyperlipemia Migraine History of herniated intervertebral disc Immunizations Name Administration Dates Next Due COVID-19 vaccine (Moderna 100mcg/0.5mL) PF, MDV 08/16/2020 COVID-19 vaccine (Moderna 50 mcg/0.5mL) 12YO+ BIVALENT PF, MDV 04/01/2022 COVID-19 vaccine (Moderna Booster 50mcg/0.25mL) PF, MDV 06/28/2021 Influenza, High-dose Inactivated 03/09/2020 Influenza, High-dose Quadrivalent Inactivated Influenza, Inactivated AIIV4 (Age 65+ Years) Preserv Free 03/25/2022 Pneumococcal Poly,23-Valent (Pneumovax) 07/30/19 17 Pneumococcal conj 13-Valent (Prevnar 13) 016 TD, UNSPECIFIED 03/25/2019 Td (Age >=7 Years) 03/25/2019 Tdap, Unspecified 02/09/2009 Zoster (Zostavax-ZVL, live) 03/12/2013 Family History Medical History Relation Name Comments Cancer-breast Sister Diabetes Sister Relation Name Status Comments Sister Social History Tobacco Use Types Packs/Day Years Used Date Smoking Tobacco: Former Cigarettes 0 11/02/1984 - 11/02/2004 Smokeless Tobacco: Never Alcohol Use Standard Drinks/Week Comments Yes 2 (1 standard drink = 0.6 oz pur e alcohol) Social Connections Answer Date Recorded Frequency of Communication with Friends and Fami ly Not on file 12/11/2021 Sex and Gender Information Value Date Recorded Sex Assigned at Not on file Gender Identity Not on file Sexual Orientation Not on file Obstetrics History Last Filed Vital Signs Vital Sign Reading Time Taken Comments Blood Pressure 116/65 04/02/2019 9:42 AM CDT Pulse 66 04/02/2019 9:42 AM CDT Temperature 36.5 ??C (97.7 ??F) 04/02/2019 9:42 AM CD T Respiratory Rate 16 04/02/2019 9:42 AM CDT Oxygen Saturation 99% 04/02/2019 9:42 AM CDT Inhaled Oxygen Concentration - - Weight 82.3 kg (181 lb 7 oz) 04/01/2019 12:28 PM CDT Height 162.6 cm (5' 4) 04/01/2019 12:28 PM CDT Body Mass Index 31.14 04/01/2019 12:28 PM CDT Plan of Treatment Health Maintenance Due Date Last Done Comments Depression screening for age 12+ 1962 BMI (ht and wt on same day) for age 18+ 02/23/1968 Hepatitis C screening for ag e 18-79 02/23/1968 Colonoscopy through age 75 1995 Lipids for age 45-75 1995 Mammogram for age 45-75 1995 Zoster (shingles) series for age 50+ (2 of 3) 05/07/2013 03/12/2013 DEXA/DXA scan for age 65+ 2015 Medicare Wellness for age 65+ 2015 COVID-19 vaccine series (2022- season) 2023 04/01/2022, 06/28/2021, 09/13/2020, Additional history exists Influenza for age 65+ 02/14/2023 03/25/2022 , 03/09/2021, 03/09/2020 Tetanus booster 03/25/2029 03/25/2019, 03/16, 02/09/2009 Tdap Completed 02/09/2009 Pneumococcal series for age 65+ Completed 7, 08/09/2015 Medical Devices Implanted Type Area Nursing Service Director Device Identifier Shelf Expiration Date Model / Serial / Lot Patella Sz32 Brenna Ii Rnd Penon Pors - [id number] Implanted:Qty: 1 on 03/31/2018 by Herman Oconnor MD at [facility] Ortho Total Joint Right: Knee [employer] 01/19/2028# / / [id number] Patella Sz32 Brenna Ii Rnd Penon Pors - [id number] Implanted:Qty: 1 on 04/01/2019 by Herman Oconnor MD at [facility] Ortho Total Joint Left: Knee [employer] 08/16/2028# / / [id number] Cmnt Bone 40g Simplex Hv Gentamicin - [id number] Implanted:Qty: 1 on 03/31/2018 by Herman Oconnor MD at [facility] Right: Knee [employer] 01/14/2020 [id number]# / / [id number] Baseplate Tib Rt Sz5 Health Facilities Surveyor Journey - [id number] Implanted:Qty: 1 on 03/31/2018 by Herman Oconnor MD at [facility] Right: Knee [employer] 12/29/2027 [id number]# / / [id number] Bi-Cruciate Stabilized Right Size 7, Femoroal Component, Journey Ii Bcs Implanted:Qty: 1 on 03/31/2018 by Herman Oconnor MD at [facility] Right: Knee [employer] 01/21/2027 [id number] / / [id number] Cmnt Bone Simplex Hv - [id number] Implanted:Qty: 1 on 03/31/2018 by Herman Oconnor MD at [facility] Right: Knee [employer] 11/14/2019 [id number]# / / [id number] Insert Knee Rt Sz5-6 9mm Journey Ii Bcs Bi Cruc Stbz - [id number] Implanted:Qty: 1 on 03/31/2018 by Herman Oconnor MD at [facility] Right: Knee [employer] 11/26/2025 [id number]# / / [id number] Insert Knee Lt Sz5-6 11mm Journey Ii Bcs Bi Cruc Stbz - [id number] Implanted:Qty: 1 on 04/01/2019 by Herman Oconnor MD at [facility] Left: Knee [employer] 12/09/2027 [id number]# / / [id number] Baseplate Tib Lt Sz 5 Health Facilities Surveyor Journey - [id number] Implanted:Qty: 1 on 04/01/2019 by Herman Oconnor MD at [facility] Left: Knee [employer] 02/21/2029 [id number]# / / [id number] Cmnt Bone 40g Simplex Hv Gentamicin - [id number] Implanted:Qty: 1 on 04/01/2019 by Herman Oconnor MD at [facility] Left: Knee [employer] [facility] 09/13/2020 [id number]# / / [id number] Cmnt Bone Simplex Hv - [id number] Implanted:Qty: 1 on 04/01/2019 by Herman Oconnor MD at [facility] Left: Knee [employer] [facility] 09/13/2020 [id number]# / / [id number] Fem Lt Sz7 Journey Ii Bcs Oxin - [id number] Implanted:Qty: 1 on 04/01/2019 by Herman Oconnor MD at [facility] Left: Knee [employer] 11/09/2028 [id number]# / / [id number] Advance Directives Documents on File Type Date Recorded Patient Accounts Payables Clerk Expl anation Healthcare Directive 04/04/2018 7:47 PM * Full Code (Latest Code Status on File) Date Activated Date Inactivated Comments 04/01/2019 12:37 PM 04/02/2019 6:14 PM Question Answer Comments Code Status Discussion: Not Discussed * Full Code Date Activated Date Inactivated Comments 03/31/2018 6:04 AM 04/02/2018 6:29 PM Question Answer Comments Code Status Discussion: Not Discussed Care Teams Tours Hostess Relationship Specialty Start Date End Date Lisa Hoyt [address] [place] [address] PCP - General Internal Medicine 03/15/22
--- OUTSIDE RECORDS SUMMARY | 2023-11-11 20:35 | XMS_ITS | Encounter Summary ---
Author Organization [facility] Address [address] [place] [address] Care Team Providers Care Net Ui Developer Name Role Phone Carin Hollis MD Primary Care Provider [phone] Reason for Visit * Reason Comments Refill SUMAtriptan (IMITREX ) 100 MG tablet [Pharmacy Med Name: SUMATRIPTAN 100MG TABLETS] Encounter Details Date Type Department Care Team (Late st Contact Info) Description 09/13/2023 Refill [facility] [address] [place], [place] [id number] [place] [address] [place] [phone] Refill (SUMAtriptan (IMITREX) 100 MG tablet [Pharmacy Med Name: SUMATRIPTAN 100MG TABLETS]) Social History Tobacco Use Types Packs/Day Years Used Date Smoking Tobacco: Former Cigarettes 1 20 0 11/02/1984 - 11/02/2004 Smokeless Tobacco: Never Comments:Quit smoking: Alcohol Use Standard Drinks/Week Comments Yes 3 (1 standard drink = 0.6 oz pur e alcohol) every other night PHQ-2 Answer Date Recorded PHQ-2 Score 2 11/06/2022 Sex and Gender Information Value Date Recorded Sex Assigned at Not on file Gender Identity Not on file Sexual Orientation Not on file documented as of this encounter Nursing Notes * Courtney Grajeda RN - 09/16/2023 7:53 AM CDT Renewed medication per medication refill standing order. Requested Prescriptions Pending Prescriptions Disp Refills SUMAtriptan (IMITREX) 100 MG tablet [Pharmacy Med Name: SUMATRIPTAN 100MG TABLETS] 27 Tablet 2 Sig: TAKE 1 TABLET BY MOUTH NEEDED FOR MIGRAINE MAY TAKE ONE ADDITIONAL TABLET IN 2 HOURS IF HEADACHE PERSISTS MAXIMUM OF 2 TABLETS IN 24 HOURS * Uziel Whartonradhageraldo Xrwcomm - 09/13/2023 8:08 AM CDT SUMAtriptan (IMITREX) 100 MG tablet [Pharmacy Med Name: SUMATRIPTAN 100MG TABLETS] Medication started: 08/11/2018 Last ordered by CARIN HOLLIS: 08/08/2023 (36 days ago) QTY: 27, Refills: 0, Sig: take 1 tabletby mouth as needed for migraine may take one additional tablet in 2 hours if headache persists maximum of 2 tablets in 24 hours (unchanged) -> Refill x 9 months (until due for an office visit) -> Calculate the quantity and number of refills manually. Last qualifying visit: 03/18/2023 (with CARIN HOLLIS) Next scheduled visit: [facility] Embedded Refills, Reference: [id number], 09/13/2023 8:08:04 AM CDT, Pool: MARIA Refill Centralized Services - Primary Care [[id number]] ([id number]) documented in this encounter Plan of Treatment Not on file documented as of this encounter Visit Diagnoses Diagnosis Migraine without aura and without status migrainosus, not intractable Migraine without aura, without mention of intractable migraine without mention of status migrainosus documented in this encounter Care Teams Net Ui Developer Relationship Specialty [place] [address] [place] [address] PCP - General Family Practice 04/16/23 documented as of this encounter
--- OUTSIDE RECORDS SUMMARY | 2023-11-11 20:35 | XMS_ITS | Encounter Summary ---
Author Organization [facility] Address [address] [place] [address] Care Team Providers Care Intelligence Consultant Name Role Phone Carin Hollis MD Primary Care Provider [phone] Encounter Details Date Type Department Care Team (Late st Contact Info) Description 12/02/2011 Orders Only [facility] [address] [place], [place] [address] Wood Cloud MD [address] [facility] JOAN STRAUSS [id number] Social History Tobacco Use Types Packs/Day Years Used Date Smoking Tobacco: Never Assessed Sex and Gender Information Value Date Recorded Sex Assigned at Not on file Gender Identity Not on file Sexual Orientation Not on file documented as of this encounter Plan of Treatment Not on file documented as of this encounter Visit Diagnoses Not on filedocumented in this encounter Additional Health Concerns Infection Onset Date Last Indicated Resolved Time R/O COVID19 04/17/2021 04/17/2021 04/18/2021 8:46 AM CDT documented as of this encounter Care Teams Intelligence Consultant Relationship Specialty [place] [address] [place] [address] PCP - General Family Practice 04/16/23 documented as of this encounter
--- OUTSIDE RECORDS SUMMARY | 2023-11-11 20:35 | XMS_ITS | Encounter Summary ---
Author Organization [facility] Address [address] [place] [address] Care Team Providers Care Cream Tester Name Role Phone Carin Hollis MD Primary Care Provider [phone] Reason for Visit * Reason Comments Refill SUMAtriptan (IMITREX ) 100 MG tablet [Pharmacy Med Name: SUMATRIPTAN 100MG TABLETS] Encounter Details Date Type Department Care Team (Late st Contact Info) Description 08/05/2023 Refill [facility] [address] [place], [place] [id number] [place] [id number] [place] [phone] Refill (SUMAtriptan (IMITREX) 100 MG tablet [Pharmacy [...] as of this encounter Nursing Notes * Adrianna Rutherford, RN - 08/08/2023 8:19 AM CST Renewed medication per medication refill protocol. Requested Prescriptions Pending Prescriptions Disp Refills SUMAtriptan (IMITREX) 100 MG tablet [Pharmacy Med Name: SUMATRIPTAN 100MG TABLETS] 27 Tablet Sig: TAKE 1 TABLET BY MOUTH NEEDED FOR MIGRAINE MAY TAKE ONE ADDITIONAL TABLET IN 2 HOURS IF HEADACHE PERSISTS MAXIMUM OF 2 TABLETS IN 24 HOURS RITY ORDERLY * Interface, Out Surescripts Prov Query - 08/05/2023 8:07 AM CST SUMAtriptan (IMITREX) 100 MG tablet [Pharmacy Med Name: SUMATRIPTAN 100MG TABLETS] Medication started: 08/11/2018 Last ordered by CARIN HOLLIS: 11/06/2022 (272 days ago) QTY: 27, Refills: 3, Sig: take 1 tablet (100 mg) by mouth as needed for migraine. may take one additional tablet by mouth in 2 hours if headache persists, maximum of 2 tablets in 24 hours. (changed) -> Unable to determine if sig has changed, review required. -> Refill x 9 months (until due for an office visit) -> Calculate the quantity and number of refills manually. Last qualifying visit: 03/18/2023 (with CARIN HOLLIS) Next scheduled visit: None [facility] [employer] Emb[employer]ded Refills, Reference: [id number], 08/05/2023 8:07:15 AM Nicolas AGRAWAL: MARIA Refill Centralized Services - Primary Care [[id number]] ([id number]) RITY ORDERLY documented in this encounter Plan of Treatment Not on file documented as of this encounter Visit Diagnoses Diagnosis Migraine without aura and without status migrainosus, not intractable Migraine without aura, without mention of intractable migraine without mention of status migrainosus documented in this encounter Care Teams Cream Tester Relationship Specialty [place] [address] [address] [place] [address] PCP - General Family Practice 04/16/23 documented as of this encounter
--- OUTSIDE RECORDS SUMMARY | 2023-11-11 20:35 | XMS_ITS | Encounter Summary ---
Author Organization [facility] Address [address] [place] [address] Care Team Providers Care Germ Drier Name Role Phone Carin Hollis MD Primary Care Provider [phone] Reason for Visit * Reason Comments Refill valACYclovir (VALTRE X) 1 g tablet [Pharmacy Med Name: VALACYCLOVIR 1GM TABLETS] Encounter Details Date Type Department Care Team (Late st Contact Info) Description 10/16/2023 Refill [facility] [address] [place] [address] [place] [address] [place], [place] [phone] Refill (valACYclovir (VALTREX) 1 g tablet [Pharmacy Med Name: VALACYCLOVIR 1GM TABLETS]) Social History Tobacco Use Types Packs/Day [...] of this encounter Nursing Notes * Adrianna Rutherford RN - 10/16/2023 1:15 PM CDT Further Assistance Needed on Refill from Clinician RN reviewed. Medication ordered for short term. Please advise if long term care pharmacist supply is appropriate Review pended order for accuracy and sign if appropriate and Document if appointment is needed for further refills Requested Prescriptions Pending Prescriptions Disp Refills valACYclovir (VALTREX) 1 g tablet [Pharmacy Med Name: VALACYCLOVIR 1GM TABLETS] 12 Tablet 1 Sig: TAKE 2 TABLETS BY MOUTH TWICE DAILY FOR 1 DAY AT THE FIRST SIGN OF A COLD SORE documented in this encounter Plan of Treatment Not on file documented as of this encounter Visit Diagnoses Not on filedocumented in this encounter Care Teams Germ Drier Relationship Specialty [place] [address] [place] [address] PCP - General Family Practice 04/16/23 documented as of this encounter
--- OUTSIDE RECORDS SUMMARY | 2023-11-11 20:35 | XMS_ITS | Clinical Summary ---
[facility] Organization [facility] Address [address], [place] [address] Care Team Providers Care Wind Up Worker Name Role Phone Carin Hollis MD Primary Care Provider [phone] Source Comments You are receiving this document as you are listed as the primary care provider,follow-up provider, or the patient has been referred to you for consultation.This is in compliance with the Medicare and[facility] EHR Incentive Program,which states Providers who transition their patient to another setting of careor provider of care or refers their patient to another provider of care shouldprovide summary care record for each transition of care or referral. [facility] Allergies No known active allergies Medications Medication Sig Dispensed Refills Start Date End Date Status calcium carbonate (CALCARB 600) 1500 (600 CA) MG Take 2 Tablets (3,000 mg) by mouth. 8 Active cholecalciferol (AKA VITAMIN D3) 1000 UNITS tablet Take 1 Tablet (1,000 Units) by mouth daily. 0 Active Biotin 5000 MCG TABS Active methylcellulose (CITRUCEL) 500 MG Take 2 Tablets (1 g) by mouth daily. 100 Tablet 3 9 Active omeprazole (PRILOSEC) 20 MG capsuleIndications: Gastroesophageal reflux disease without esophagitis Take 1 Capsule (20 mg) by mouth daily. Take 1 hour before a meal. 90 Capsule 3 3 Active piroxicam (FELDENE) 20 MG capsule Take 1 Capsule (20 mg) by mouth daily as needed. 30 Capsule 3 3 Active simvastatin (ZOCOR) 20 MG tabletIndications:M ixed hyperlipidemia (HRC) Take 1 Tablet (20 mg) by mouth daily at bedtime. 90 Tablet 3 3 Active diclofenac (VOLTAREN) 1 % gel Apply 2 g to skin 4 times a day. 1 Each 3 3 Active loratadine (CLARITIN) 10 MG tablet Take 1 Tablet (10 mg) by mouth daily. 90 Tablet 3 3 Active SUMAtriptan (IMITREX) 100 MG tabletIndications:M igraine without aura and without status migrainosus, not intractable TAKE 1 TABLET BY MOUTH NEEDED FOR MIGRAINE MAY TAKE ONE ADDITIONAL TABLET IN 2 HOURS IF HEADACHE PERSISTS MAXIMUM OF 2 TABLETS IN 24 HOURS 27 Tablet 2 4 Active valACYclovir (VALTREX) 1 g tablet TAKE 2 TABLETS BY MOUTH TWICE DAILY FOR 1 DAY AT THE FIRST SIGN OF A COLD SORE 12 Tablet 4 Active valACYclovir (VALTREX) 1 g tablet Take 2 Tablets (2,000 mg) by mouth two times a day. For 1 day at the first sign of a cold sore 12 Tablet 1 3 10/16/19 24 Discontinued Active Problems Problem Noted Date Diagnosed Date [...] LW Modifier: s/p epidural injection LW Onset: [id number] ; Herniated Disc Family history of pulmonary embolism Overview: Two sisters Resolved Problems Problem Noted Date Diagnosed Date Resolved Date Mild intermittent asthma, uncomplicated 07/14/2020 04/17/2021 Primary osteoarthritis of left knee 11/16/2018 09/01/2019 Pain due to total right knee replacement 11/16/2018 03/25/2019 Primary osteoarthritis of both knees 03/11/2012 03/25/2019 Symptomatic menopausal or fe male climacteric states 03/26/2004 08/09/2005 Overview: LW Onset: [id number] ; Hot Flashes Diverticulosis of large intestine 03/26/2004 01/31/2015 Overview: Diverticulosis Colon Herpes simplex virus (HSV) infection 03/26/2004 05/26/2004 Overview: LW Onset: [id number] ; Herpes Simplex Labialis Encounters Date Type Department Care Team Description 10/24/[address] [address] Carin Hollis MD Refill (valACYclovir (VALTREX) 1 g tablet [Pharmacy Med Name: VALACYCLOVIR 1GM TABLETS]) 10/16/[address] [address] Carin Hollis MD Refill (valACYclovir (VALTREX) 1 g tablet [Pharmacy Med Name: VALACYCLOVIR 1GM TABLETS]) 09/13/[address] [address] Carin Hollis MD Refill (SUMAtriptan (IMITREX) 100 MG tablet [Pharmacy Med Name: SUMATRIPTAN 100MG TABLETS]) from Last 3 Months Immunizations Name Administration Dates Next Due Flu Vac (3+ yrs) 03/11/2012,02/26/2011 Flu Vac Preserv Free (3+yrs) 03/11/2012,02/10/20 09 Influenza (Fluzone 0.25, 6-35 mos) 03/12/2013 Influenza IIV3 (Trivalent) F luzone Highdose, 65+ Yrs (03564) 03/09/2020,03/04/2019,03/19/2018, 017,03/06/2016,03/29/2015 Influenza IIV4 (Quadrivalent ) 0.5mL (34071) 03/25/2022,03/04/2019,03/19/2018, 017,03/06/2016,03/29/2015,03/14/2014,,03/11/2012,02/26/2011 Influenza IIV4 (Quadrivalent ) Fluad, 65+ Yrs 03/25/2022 Influenza IIV4 (Quadrivalent ) Fluzone, 65+ Yrs 02/28/2023,03/09/2021 Moderna Bivalent 12+ 04/01/2022 Moderna Monovalent 12+ 06/28/2021,09/13/2020,08/2020 PCV13 (Prevnar) 08/09/2015 PPSV23 (Pneumovax) 07/30/2016 TDAP (BOOSTRIX) 02/09/2009 Td 07/16/1999 Td (7+ yrs) 03/25/2019 Zoster (Zostavax) 03/12/2013 Zoster RZV (Shingrix) 03/11/2023,01/10/2023 Family History Medical History Relation Name Comments Cataract Mother Cancer Sister 1 aruna Crohn's Disease Sister 1 aruna DVT/PE Sister 1 aruna Pulmonary Embolism Sister 1 aruna Cancer Sister 2 jovanny Cancer, Breast Sister 2 jovanny Diabetes, Type II Sister 3 Pulmonary Embolism Sister 3 Diabetes Son Amblyopia/Strabismus Negative Family History Blindness Negative Family History Cancer, Colon Negative Family History Cancer, Endometrial Negative Family History Coronary Artery Disease Negative Family History Diethylstilbestrol Exposure Negative Family History Glaucoma Negative Family History High Blood Pressure Negative Family History High Cholesterol Negative Family History Macular Degeneration Negative Family History Retinal Detachment Negative Family History Thyroid Disorder Negative Family History Relation Name Status Comments Father Mother Maternal Grandfather Maternal Grandmother Paternal Grandfather Paternal Grandmother Sister 1 aruna Alive Sister 2 jovanny Alive Sister 3 Alive Son Social History Tobacco Use Types Packs/Day Years Used Date Smoking Tobacco: Former Cigarettes 1 20 0 11/02/1984 - 11/02/2004 Smokeless Tobacco: Never Tobacco Cessation:Counseling Given: Not Answered Comments:Quit smoking: Alcohol Use Standard Drinks/Week Comments Yes 3 (1 standard drink = 0.6 oz pur e alcohol) every other night PHQ-2 Answer Date Recorded PHQ-2 Score 2 11/06/2022 Sex and Gender Information Value Date Recorded Sex Assigned at Not on file Gender Identity Not on file Sexual Orientation Not on file Last Filed Vital Signs Vital Sign Reading Time Taken Comments Blood Pressure 148/85 04/16/2023 10:02 AM CDT Pulse 74 04/16/2023 9:51 AM CDT Temperature 36.9 ??C (98.4 ??F) 04/17/2021 1:29 PM CD T Respiratory Rate 20 07/14/2020 9:58 AM FLOOR FRAMER Oxygen Saturation 97% 04/16/2023 9:51 AM CDT Inhaled Oxygen Concentration - - Weight 86.9 kg (191 lb 9.6 oz) 04/16/2023 9:51 A M CDT Height 161.3 cm (5' 3.5) 04/16/2023 9:51 AM CDT Body Mass Index 33.41 04/16/2023 9:51 AM CDT Plan of Treatment Health Maintenance Due Date Last Done Comments Lung Cancer Screening 02/11/2023 02/11/2022 (Completed), 03/19/2021 (Completed), 03/28/2020 COVID-19 Vaccine ( season) 2023 04/01/2022, 06/28/2021, 09/13/2020, Additional history exists Colonoscopy 08/29/2023 08/28/2018 (Comp leted), 09/06/2013 (Completed) Dexa 09/11/2023 09/10/2021, 12/15, 12/31/2017, Additional history exists Medicare Annual Wellness Visit 11/07/2023 11/06/2022, 09/14/2021, 09/06/2020, Additional history exists Prediabetes: HGBA1C 11/08/2023 11/07/2022, 09/14/2021, 09/07/2020, Additional history exists Mammogram 03/12/2024 03/12/2023, 02/15, 03/08/2021, Additional history exists Cholesterol 11/14/2027 11/13/2022, 04/0 06/2021, 09/07/2020, Additional history exists DTaP/Tdap/Td (3 - Tdap) 03/25/2029 03/25/20 19, 02/09/2009, 07/16/1999 Pneumococcal 65+ Yrs Completed 07/30/2016, 08/09/19 16 Hep C Screening (Preventive Services) Completed 08/05/2017 Influenza Completed 02/28/2023, 03/16, 03/25/2022, Additional history exists Zoster/Shingles Completed 03/11/2023, 12/15, 03/12/2013 HepA Aged Out No longer eligi ble based on patient's age to complete this topic HepB Aged Out No longer eligi ble based on patient's age to complete this topic Hib Aged Out No longer eligi ble based on patient's age to complete this topic IPV (Polio) Aged Out No longer eligi ble based on patient's age to complete this topic MCV4 Aged Out No longer eligi ble based on patient's age to complete this topic Procedures Procedure Name Priority Date/Time Associated Diagnosis Comments MM MAMMOGRAM SCREENING BILAT W 3D RASHAD W CAD Routine 03/12/2023 10:21 AM CDT LIPID PANEL & DIRECT LDL (IF NEEDED) Routine 11/13/2022 9:27 AM CDT Mixed hyperlipidemia (HRC) HGB A1C Routine 11/07/2022 8:03 AM CDT Pre-diabetes DXA BONE DENSITY SPINE/HIP INC VERT FX ASSESS Routine 09/10/2021 2:56 PM CDT Osteopenia, unspecified location CT CHEST WO IV CONT LUNG SCREENING Routine 03/28/2020 8:34 AM CDT Smokes less than 1 pack a day with greater than 30 pack year history HEPATITIS C ANTIBODY, WITH REFLEX Routine 08/05/2017 10:28 AM FLOOR FRAMER Routine physical examination from Last 3 Months or Most Recently Relevant to Health Maintenance Results * MM Mammogram Screening Bilat W 3D Rashad W CAD (03/12/2023 10:21 AM CDT) Anatomical Region Laterality Modality Breast Bilateral Mammography Impressions 03/12/2023 10:38 AM CDT : ACR BI-RADS Category 2: Benign RECOMMENDATION: Follow Up Imaging in 12 months - Bilateral The results and recommendations of this examination will be communicated to the patient. Narrative 03/12/2023 10:38 AM CDT MM MAMMOGRAM SCREENING BILAT W 3D RASHAD W CAD performed on 03/12/23 Compared to: 03/11/2022 MM Mammogram Screening Bilat W 3D Rashad W CAD, 03/08/2021 MM Mammogram Screening Bilat W 3D Rashad W CAD, and 02/28/2020 MM Mammogram Screening Bilat W 3D Rashad W CAD ?? FINDINGS: Bilateral screening mammogram was performed with the assistance of Computer-Aided Detection and breast tomosynthesis. The breasts have scattered areas of fibroglandular density. There are breast conservation changes on the right. There is no radiographic evidence of malignancy. ?? Carin Hollis MD RAD NANDIN[facility] * Lipid Panel and Direct LDL(If Needed) (11/13/2022 9:27 AM CDT) Cholesterol 177 0 - 199 mg/dL 11/13/2022 3:02 PM [facility] Triglyceride 97 <=149 mg/dL 11/13/2022 3:02 PM [facility] HDL Cholesterol 57 >=40 mg/dL 3:02 PM [facility] LDL, Calculated 101 <130 mg/dL 3:02 PM [facility] Non HDL Chol, Calculated 120 <=159 mg/dL 11/13/2022 3:02 PM [facility] Cholesterol/HDL Ratio 3.1 11/13/2022 3:02 PM CDT [facility] Hours Fasting 12 11/13/2022 3:02 PM CDT [facility] Blood Venipuncture / Unknown 11/13/2022 9:27 AM CDT 11/13/2022 9:27 AM CDT Carin Hollis MD LAB_1 Performing Organization Address [facility]/ZIP Co de Phone Number [facility] [address] [place] [address], [facility] [phone] [facility] [address] [place] [address], [place] [phone] * (ABNORMAL) Hgb A1C (11/07/2022 8:03 AM CDT) Hemoglobin A1C 6.0(H) <=5.6 % 11/07/2022 4:58 PM CDT [facility] Estimated Average Glucose (Calc) 126 < 117 mg/dL 11/07/2022 4:58 PM CDT [facility] Comment:Estimated average gl ucose (eAG) converts A1c into glucose units (mg/dL) and estimates average glucose over the past approximately 3 months. The eAG reference interval (<117 mg/dL) corresponds to an A1c of <5.7%. Blood Venipuncture / Unknown 11/07/2022 8:03 AM CDT 11/07/2022 8:03 AM CDT Narrative [facility] - 11/07/2022 4:58 PM CDT For patients not previously diagnosed with diabetes: 5.7-6.4%: Increased risk for diabetes 6.5% and greater: Diagnostic for diabetes For patients diagnosed with diabetes: <8.0%: Goal of therapy for ages 18-75 Clinicians may recommend a higher or lower goal for specific individuals. Carin Hollis MD LAB_1 Performing Organization Address [facility]/ZIP Co de Phone Number [facility] [address] [address], [facility] [phone] * DXA Bone Density Spine/Hip Inc Vert FX Assess (09/10/2021 2:56 PM CDT) Anatomical Region Laterality Modality Spine, Hip Radiographic Laila ging Narrative 09/19/2021 10:33 AM CDT CLINIC DXA REPORT Patient Name: ??Latoya Alvarenga Densitometer: ??Hologic Horizon W (S/N [id number]) ABEL BONE OSTEOPOROSIS RISK FACTORS FROM PATIENT QUESTIONNAIRE: ?? The patient is a 71 y.o.female: she was able to rise easily from a chair, menopause at age 48, calcium intake is adequate, no self-reported personal or first-degree relative with history of fragility fracture, no self-reported falls in the last 12 months, past zoledronic acid therapy. BONE MINERAL DENSITY: Lumbar spine analysis is excluded due to the presence of degenerative sclerosis, surgical hardware, fracture(s), and/or other artifacts Total Hip Bone Mineral Density (gm/cm2): 0.742 (L) T-Score: -1.6 Z-Score: -0.1 Femoral Neck Bone Mineral Density (gm/cm2): 0.617 T-Score: -2.1 Z-Score: -0.2 FRAX 10 year probability major osteoporotic fracture: 12% 10 year probability hip fracture: 2.4% Fracture risk is based on bone density, age, ethnicity, and other BMD-independent risk factors noted from the questionnaire and the FRAX score, if available. ??See different fracture risk categories below under definitions. VFA (Vertebral Fracture Assessment) (T5-L5): No vertebral deformities consistent with fracture were noted. ASSESSMENT: 1: ??Moderate low bone mass (osteopenia), based on the lowest T-score at the femoral neck. 2: ??Compared to the prior study of 01/03/2020, there has been no statistically significant +2.9% change in BMD at the hip. 3: ??Fracture risk assessment: mildly increased future fracture risk. RECOMMENDATIONS: 1: ??Recommend adequate calcium and vitamin D intake. 2: ??Consider repeat bone density in 2-3 years. Definitions (T-Score = Standard deviations above/below mean peak adult) (Z-Score = Standard deviations above/below mean age/sex-matched peers) ISCD Standards: ??For a more accurate fracture risk assessment, reference data is used for all ethnic groups and the 1/3 region is reported for the forearm. WHO DEFINITIONS: Normal BMD: T-score ? -1.0 Osteopenia: T-score between -1.0 and -2.5 Osteoporosis: T-score ? -2.5 FRAX Score : ??The FRAX?? algorithms give the 10-year probability of fracture. The output is a 10-year probability of hip fracture and the 10-year probability of a major osteoporotic fracture (clinical spine, forearm, hip or shoulder fracture). ?? The FRAX score takes into account the bone density, but also age, gender, weight, height, previous fracture, parental hip fracture, smoking status, glucocorticoid intake, history of RA, secondary osteoporosis, and high alcohol intake in determining fracture risk in patients with osteopenia and osteoporosis. FRAX fracture risk estimates are adjusted for Trabecular Bone Score (TBS) when available. Trabecular Bone Score (TBS) is a measure of the microarchitectural integrity of trabecular bone, and is derived from the yyxqj-zo-zypau changes of bone density embedded in the AP spine BMD image. TBS is only modestly correlated with BMD, and is modestly associated with incident major osteoporotic and hip fractures independent of BMD and other risk factors. FRAX and Fracture Risk Categories in terms of major osteoporotic fracture risk (clinical spine, forearm, hip, or shoulder): < 10% ?= ?low fracture risk ? 10% and <15% ?= ?mildly increased fracture risk ? 15% and <20% ?= ?moderately increased fracture risk ? 20% and <30% ?= ?high fracture risk ? 30% ?= ?very high fracture risk A clinician may consider FDA-approved medical therapies in postmenopausal women and men aged 50 years and older, if one or more of the following is present (clinical correlation required and therapy may not always be indicated): 1. ??The patient has a hip or vertebral (clinical or morphometric) fracture. 2. ??T-score ? -2.5 at the femoral neck, hip, or spine after appropriate evaluation to exclude secondary causes. 3. ??Low bone mass (T-score between -1.0 and -2.5 at the femoral neck, hip or spine) and a 10-year probability of a hip fracture ? 3% or a 10-year probability of a major osteoporosis-related fracture ? 20% based on the FRAX scores. 4. ??Clinicians judgment and/or patient preferences may result in a decision to patients with 10-year fracture probabilities above or below these levels. Binh Domínguez MD RAD DEXA * CT Chest WO IV Cont Lung Screening (03/28/2020 8:34 AM CDT) Anatomical Region Laterality Modality Chest, Lung Computed Tomogra phy 03/28/2020 8:26 AM CDT Impressions 03/28/2020 10:15 AM CDT COMPARISON: Chest radiograph 03/24/2020, abdominal CT 03/20/2018 TECHNIQUE: Images through the chest were obtained without contrast using a low dose lung screening technique. FINDINGS: There are fine reticular opacities along with subpleural lungs, bilaterally, slight basilar predominance without libia honeycombing. Slight mosaic attenuation suggests mild underlying air trapping. In the subpleural right upper lobe posteriorly on slice 31 of series 3 is a 0.4 cm dense noncalcified pulmonary nodule. Several very small indistinct sub-solid nodules also noted, right upper lobe slices 27 and 48. Benign granuloma left lower lobe. No effusions or lymphadenopathy. Limited evaluation of the upper abdomen unremarkable. No acute bony pathology. 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 IMPRESSION: 1. Several small subpleural nodules as above. 2. [id number] fibrotic changes as above, suggest correlating with pulmonary function tests. ACR Lung-RADS Category 2: Benign appearance or behavior. Nodules with a very low likelihood of becoming a clinically active cancer due to size or lack of growth. Continue annual screening with low-dose chest CT in 12 months. Katina Dotson DO RAD CT * Hepatitis C Antibody, with Reflex (08/05/2017 10:28 AM FLOOR FRAMER) Hepatitis C Antibody Nonreactive Nonreactive PN SOFT 08/05/2017 10:2 8 AM FLOOR FRAMER 08/05/2017 1:26 PM FLOOR FRAMER Narrative PN SOFT - 08/05/2017 2:41 PM FLOOR FRAMER Performed at [facility] [address] [place] [address] CLIA number [id number] Lisa Hoyt MD LAB_1 PN SOFT [address] [place] [address] from Last 3 Months or Most Recently Relevant to Health Maintenance Advance Directives Documents on File Type Date Recorded Patient Senior Insight Manager International Expl anation Advance Directive/Living Will/Durable Power of [place] on file/POL[facility] PN 01/28/2013 1:14 PM * Full Code (Latest Code Status on File) Date Activated Date Inactivated Comments 07/03/2017 4:01 PM 07/03/2017 8:43 PM Care Teams Wind Up Worker Relationship Specialty [place] [address] [place] [address] PCP - General Family Practice 04/16/23
--- OUTSIDE RECORDS SUMMARY | 2023-11-11 20:35 | XMS_ITS | Encounter Summary ---
Author Organization [employer] Address [address] [place] [address] Care Team Providers Care Library Paraprofessional Name Role Phone Carin Hollis MD Primary Care Provider [phone] Reason for Visit * Reason Comments Refill valACYclovir (VALTRE X) 1 g tablet [Pharmacy Med Name: VALACYCLOVIR 1GM TABLETS] Encounter Details Date Type Department Care Team (Late st Contact Info) Description 10/24/2023 Refill [facility] [address] [place] [address] [place] [address] [place], [place] [phone] Refill (valACYclovir (VALTREX) 1 g tablet [Pharmacy [...] as of this encounter Nursing Notes * Minerva Harrison RN - 10/28/2023 8:58 PM CDT Further Assistance Needed on Refill from Clinician RN reviewed. Signed order needed. 03/18/23 visit with Carin Hollis MD Review pended order for accuracy and sign if appropriate and Close encounter Requested Prescriptions Pending Prescriptions Disp Refills valACYclovir [...] on filedocumented in this encounter Care Teams Library Paraprofessional Relationship Specialty [place] [address] [place] [place] [address] PCP - General Family Practice 04/16/23 documented as of this encounter
== END 2023-11-07 09:02 | disposition home or self-care (01) ==
LOC: NFLDREF 11-11 20:32
PROVIDERS: PCP Internal Medicine; Referring Provider Internal Medicine; Visit Provider Internal Medicine
DX: E78.5 Hyperlipidemia, unspecified (principal); M81.0 Age-related osteoporosis without current pathological fracture; R73.03 Prediabetes
CPT/HCPCS: 80061; 82306

== ENCOUNTER 2024-03-15 08:47 | Outpatient (CLI) | payer MEDICARE, SELFPAY ==
--- OUTSIDE RECORDS SUMMARY | 2024-03-15 09:03 | XMS_ITS | Clinical Summary ---
Author Organization [employer] Address [place], [place] [address] Care Team Providers Care Top Icer Name Role Phone Lisa Hoyt Primary Care Provider [phone] Allergies Active Allergy Reactions Criticality Noted Date [...] 65+ 2015 COVID-19 vaccine series (2022- season) 2024 04/01/2022, 06/28/2021, 09/13/2020, Additional history exists Influenza for age 65+ 02/15/2024 03/25/2022 , 03/09/2021, 03/09/2020 Tetanus booster 03/25/2029 03/25/2019, 03/16, 02/09/2009 Tdap Completed 02/09/2009 Pneumococcal series for age 65+ Completed 7, 08/09/2015 Medical Devices Implanted Type Area Squeegee Operator Device Identifier Shelf Expiration Date Model / Serial / Lot Patella Sz32 Brenna Ii Rnd Penon Pors - [id number] Implanted:Qty: 1 on 03/31/2018 by Herman Oconnor MD at [facility] Right: Knee [employer] 01/19/2028# / / [id number] Patella Sz32 Brenna Ii Rnd Penon Pors - [id number] Implanted:Qty: 1 on 04/01/2019 by Herman Oconnor MD at [facility] Left: Knee [employer] 08/16/2028# / / [id number] Cmnt Bone 40g Simplex Hv Gentamicin - [id number] Implanted:Qty: 1 on 03/31/2018 by Herman Oconnor MD at [facility] Right: Knee [employer] 01/14/2020 [id number]# / / [id number] Baseplate Tib Rt Sz5 Elevator Repairer Journey - [id number] Implanted:Qty: 1 on 03/31/2018 by Herman Oconnor MD at [facility] Right: Knee [employer] 12/29/2027 [id number]# / / [id number] Bi-Cruciate Stabilized Right Size 7, Femoroal Component, Journey Ii Bcs Implanted:Qty: 1 on 03/31/2018 by Herman Oconnor MD at [facility] Right: Knee [employer] 01/21/2027 [id number] / / [id number] Cmnt Bone Simplex Hv - [id number] Implanted:Qty: 1 on 03/31/2018 by Herman Oconnor MD at [facility] Right: Knee [employer] 11/14/2019 6194-1-001# / / [id number] Insert Knee Rt Sz5-6 9mm Journey Ii Bcs Bi Cruc Stbz - [id number] Implanted:Qty: 1 on 03/31/2018 by Herman Oconnor MD at [facility] Right: Knee [employer] 11/26/2025 [id number]# / / [id number] Insert Knee Lt Sz5-6 11mm Journey Ii Bcs Bi Cruc Stbz - [id number] Implanted:Qty: 1 on 04/01/2019 by Herman Oconnor MD at [facility] Left: Knee [employer] 12/09/2027 [id number]# / / [id number] Baseplate Tib Lt Sz 5 Elevator Repairer Journey - [id number] Implanted:Qty: 1 on 04/01/2019 by Herman Oconnor MD at [facility] Left: Knee [employer] 02/21/2029 [id number]# / / [id number] Cmnt Bone 40g Simplex Hv Gentamicin - [id number] Implanted:Qty: 1 on 04/01/2019 by Herman Oconnor MD at [facility] Left: Knee [employer] 09/13/2020 [id number]# / / [id number] Cmnt Bone Simplex Hv - [id number] Implanted:Qty: 1 on 04/01/2019 by Herman Ocnonor MD at [facility] Left: Knee [employer] 09/13/2020 6194-1-001# / / [id number] Fem Lt Sz7 Journey Ii Bcs Oxin - [id number] Implanted:Qty: 1 on 04/01/2019 by Herman Oconnor MD at [facility] Left: Knee [employer] 11/09/2028 [id number]# / / [id number] Advance Directives Documents on File Type Date Recorded Patient Casting Machine Adjuster Expl anation Healthcare Directive 04/04/2018 7:47 PM * Full Code (Latest Code Status on File) Date Activated Date Inactivated Comments 04/01/2019 12:37 PM 04/02/2019 6:14 PM Question Answer Comments Code Status Discussion: Not Discussed * Full Code Date Activated Date Inactivated Comments 03/31/2018 6:04 AM 04/02/2018 6:29 PM Question Answer Comments Code Status Discussion: Not Discussed Care Teams Top Icer Relationship Specialty Start Date End Date Lisa Hoyt [address] [place] [address] PCP - General Internal Medicine 03/15/22
--- OUTSIDE RECORDS SUMMARY | 2024-03-15 09:03 | XMS_ITS | Encounter Summary ---
Author Organization [employer] Address [address] [address] Care Team Providers Care Decorating Instructor Name Role Phone Carin Hollis MD Primary Care Provider [phone] Encounter Details Date Type Department Care Team (Late st Contact Info) Description 12/02/2011 Orders Only [facility] [address] [place], [place] [phone] Wood Cloud MD [address] [place], [place] [phone] Social History Tobacco Use Types Packs/Day Years Used Date Smoking Tobacco: Never Assessed Sex and Gender Information Value Date Recorded Sex Assigned at Not on file Gender Identity Not on file Sexual Orientation Not on file documented as of this encounter Plan of Treatment Upcoming Encounters Date Type Department Care Team (Late st Contact Info) Description 04/22/2024 9:20 AM TECH WRITER [facility] [address] [address] [facility] [address] [place] [phone] Pham Hansen MD [address] [place], [place] [address] 04/22/2024 10:00 AM TECH WRITER Appointment [facility] [address] [place] [address] 04/22/2024 11:00 AM TECH WRITER Appointment [facility] [address] [place] [address] Pham Hansen MD [address] [place] [address] documented as of this encounter Visit Diagnoses Not on filedocumented in this encounter Additional Health Concerns Infection Onset Date Last Indicated Resolved Time R/O COVID19 04/17/2021 04/17/2021 04/18/2021 8:46 AM CDT documented as of this encounter Care Teams Decorating Instructor Relationship Specialty [place] [address] [place] [address] PCP - General Family Practice 04/16/23 documented as of this encounter
--- OUTSIDE RECORDS SUMMARY | 2024-03-15 09:03 | XMS_ITS | Continuity of Care Document ---
Author Organization [facility] Address [address] [place] [address] Phone Care Team Providers Care Financial Analyst Intern Name Role Phone Clinton Garcia MD Unavailable Unavailable Allergies, Adverse Reactions, Alerts Substance Reaction Status Criticality No Known Allergies Active No Inform ation Medications Medication Instructions Dosage Effective Dates (start - stop) Status Comments SIMVASTATIN (unknown strength) Not Available - Active SUMATRIPTAN SUCCINATE (unknown strength) Not Available - Active OMEPRAZOLE (unknown strength) Not Available - Active PIROXICAM (unknown strength) Not Available - Active BIOTIN (unknown strength) Not Available - Active VITAMIN D3 (unknown strength) Not Available - Active Procedures Procedure Date Office/Outpatient Visit,Est, Low 2022 Office/Outpatient Visit,New, Mod 2022 X-Ray Exam Lwr Spine, Min 4 Views X-Ray Exam Of Neck Spine, 4+ Views Advance Directives Directive Yes / No Effective Date File Name No Information Encounters Encounter Description Practice Location Reason(s) For Visit Diagnoses Date Provider Providers Copied on Encounter Office/Outpat ient Visit,Est, Low [facility], [address], [place], [place], [id number], [place] tel:[phone] [facility] Other spondylosis, lumbar regionOther spondylosis, cervical region Jose Alonzo. [facility] , [address] [facility] , [place], [address], [place]. tel:[phone] Referring Provider: Carlos Umanzor, [facility] [address], [place], [address]. tel:[phone] Office/Outpat ient Visit,New, Mod [facility], [address], [place], [id number], [place] tel:[phone] [facility] Other spondylosis, lumbar regionOther spondylosis, cervical region Christiano Gonzalez. [facility], [address] [place] [address] [address], [place], [place], [id number], [place]. tel:[phone] Referring Provider: Carlos Umanzor, [facility] [address], [place], [address]. tel:[phone] Family History Family Member Type Diagnosis Age At Onset No Information Payers Payer name Insurance type Covered constitution [place] [id number] Medicare [facility] [id number] 1 Social History Type Description Quantity Date [...]
--- OUTSIDE RECORDS SUMMARY | 2024-03-15 09:03 | XMS_ITS ---
Author Organization [employer] Address [address] [place] [address] Care Team Providers Care Professor Of Special Education Name Role Phone Carin Hollis MD Primary Care Provider [phone] Active Problems Problem Noted Date Diagnosed Date ILD (interstitial lung disease) 07/14/2020 Primary osteoarthritis involving multiple joints 08/19/2019 History of total bilateral knee replacement 03/16 Malignant neoplasm of right female breast 2016 Cancer Staging:Clinical: Unsigned Pathologic:Stage IA(T1c, N0, cM0) - Signed by Tami Hughes MBBS on 10/23/2023 Primary osteoarthritis of both hands 08/30/2016 Osteoporosis 08/12/2015 Microscopic hematuria 01/31/2015 Overview (01/17/2016): Negative work up in 2012 Plantar fasciitis 01/31/2015 Pre-diabetes 03/12/2013 H/O cold sores 01/08/2013 Gastroesophageal reflux disease without esophagi tis 06/06/2011 Migraine without aura and wi thout status migrainosus, not intractable 06/04/2010 Vitamin D deficiency 02/15/2009 Benign neoplasm of colon 02/09/2009 Overview (02/05/2017): Adenomatous ; Polyp Colon Mixed hyperlipidemia 03/26/2004 Intervertebral disc disorder 03/26/2004 Overview (02/05/2017): LW Modifier: s/p epidural injection LW Onset: 32Spb59 ; Herniated Disc Family history of pulmonary embolism Overview (02/25/2019): Two sisters Current Oncology Plans No current plan information found. Past Plans Radiation Treatments * No radiation treatments are documented for this patient in [facility]. Treatments may have been administered in another system. Resolved Problems Problem Noted Date Diagnosed Date Resolved Date Mild intermittent asthma, uncomplicated 07/14/2020 04/17/2021 Primary osteoarthritis of left knee 11/16/2018 09/01/2019 Pain due to total right knee replacement 11/16/2018 03/25/2019 Primary osteoarthritis of both knees 03/11/2012 03/25/2019 Symptomatic menopausal or fe male climacteric states 03/26/2004 08/09/2005 Overview (02/05/2017): LW Onset: 63Xti46 ; Hot Flashes Diverticulosis of large intestine 03/26/2004 01/31/2015 Overview (02/05/2017): Diverticulosis Colon Herpes simplex virus (HSV) infection 03/26/2004 05/26/2004 Overview (02/05/2017): LW Onset: 00Dzj24 ; Herpes Simplex Labialis
--- OUTSIDE RECORDS SUMMARY | 2024-03-15 09:03 | XMS_ITS | Encounter Summary ---
Author Organization [employer] Address [address] [place] [address] Care Team Providers Care Assistant Passenger Locomotive Engineer Name Role Phone Carin Hollis MD Primary Care Provider [phone] Reason for Visit * Reason Comments Refill omeprazole (PRILOSEC ) 20 MG capsule [Pharmacy Med Name: OMEPRAZOLE 20MG CAPSULES] Encounter Details Date Type Department Care Team (Late st Contact Info) Description 12/27/2023 Refill [facility] [address] [place] [address] Carin Hollis MD [address] [place] [phone] Refill (omeprazole (PRILOSEC) 20 MG capsule [Pharmacy Med Name: OMEPRAZOLE 20MG CAPSULES]) Social History Tobacco Use Types Packs/Day Years [...] as of this encounter Nursing Notes * Shelbie Casas, RN - 12/27/2023 10:22 AM CDT Further Assistance Needed on Refill from Load Haul Dump Operator Patient is due for Qualifying Visit. Last qualifying visit: 03/18/2023 (with CARIN HOLLIS) Medication has been refilled for 90 day supply. Patient is due for an Office/Video Visit. Call Patient and document using .KATHRINE. After attempting to schedule patient: Close encounter. Refill has already been processed per standing order. Requested Prescriptions Pending Prescriptions Disp Refills omeprazole (PRILOSEC) 20 MG capsule [Pharmacy Med Name: OMEPRAZOLE 20MG CAPSULES] 90 Capsule 0 Sig: TAKE ONE CAPSULE BY MOUTH DAILY 1 HOUR BEFORE A MEAL * Inocencio Wharton [employer] - 12/27/2023 8:07 AM CDT omeprazole (PRILOSEC) 20 MG capsule [Pharmacy Med Name: OMEPRAZOLE 20MG CAPSULES] Medication started: 08/11/2018 Last ordered by CARIN HOLLIS: 11/06/2022 (416 days ago) QTY: 90, Refills: 3, Sig: take 1 capsule (20 mg) by mouth daily. take 1 hour before a meal. (changed but equivalent) -> Refill x 3 months (until due for an office visit) Last qualifying visit: 03/18/2023 (with CARIN HOLLIS) Next scheduled visit: [facility] Embedded Refills, Reference: [id number], 12/27/2023 8:07:03 AM Nicolas ROWLEY: MARIA Refill [facility] - Primary Care [[id number]] ([id number]) documented in this encounter Plan of Treatment Upcoming Encounters Date Type Department Care Team (Late st Contact Info) Description 04/22/2024 9:20 AM TAPE CUTTING MACHINE OPERATOR Appointment [facility] [place] [address] [address] [address] [place] [phone] Pham Hansen MD [address] [place], [place] [address] 04/22/2024 10:00 AM TAPE CUTTING MACHINE OPERATOR Appointment [facility] [address] [place], [place] [address] 04/22/2024 11:00 AM TAPE CUTTING MACHINE OPERATOR Appointment [facility] [address] [place], [place] [address] Pham Hansen MD [address] [place], [place] [address] documented as of this encounter Visit Diagnoses Diagnosis Gastroesophageal reflux disease without esophagitis Esophageal reflux documented in this encounter Care Teams Assistant Passenger Locomotive Engineer Relationship Specialty [place] [address] [facility] [place] [place] [address] PCP - General Family Practice 04/16/23 documented as of this encounter
--- OUTSIDE RECORDS SUMMARY | 2024-03-15 09:03 | XMS_ITS | Clinical Summary ---
Author Organization [facility] Address [address], [place] [address] Care Team Providers Care Bridge Instructor Name Role Phone Carin Hollis MD Primary Care Provider [phone] Source Comments You are receiving this document as you are listed as the primary care provider,follow-up provider, or the patient has been referred to you for consultation.This is in compliance with the Medicare and[facility] EHR Incentive Program,which states Providers who transition their patient to another setting of careor provider of care or refers their patient to another provider of care shouldprovide summary care record for each transition of care or referral. [employer] Allergies No known active allergies Medications Medication Sig Dispensed Refills Start Date End Date Status calcium carbonate (CALCARB 600) 1500 (600 CA) MG Take 2 Tablets (3,000 mg) by mouth. 11/03/2007 Active cholecalciferol (AKA VITAMIN D3) 1000 UNITS tablet Take 1 Tablet (1,000 Units) by mouth daily. 06/04/2010 Active Biotin 5000 MCG TABS Acti ve methylcellulose (CITRUCEL) 500 MG Take 2 Tablets (1 g) by mouth daily. 100 Tablet 3 03/25/2019 Active piroxicam (FELDENE) 20 MG capsule Take 1 Capsule (20 mg) by mouth daily as needed. 30 Capsule 3 11/06/2022 Active simvastatin (ZOCOR) 20 MG tabletIndications:Mix ed hyperlipidemia (HRC) Take 1 Tablet (20 mg) by mouth daily at bedtime. 90 Tablet 3 11/06/2022 Active diclofenac (VOLTAREN) 1 % gel Apply 2 g to skin 4 times a day. 1 Each 3 11/06/2022 Active SUMAtriptan (IMITREX) 100 MG tabletIndications:David shey without aura and without status migrainosus, not intractable TAKE 1 TABLET BY MOUTH NEEDED FOR MIGRAINE MAY TAKE ONE ADDITIONAL TABLET IN 2 HOURS IF HEADACHE PERSISTS MAXIMUM OF 2 TABLETS IN 24 HOURS 27 Tablet 2 09/16/2023 Active valACYclovir (VALTREX) 1 g tablet TAKE 2 TABLETS BY MOUTH TWICE DAILY FOR 1 DAY AT THE FIRST SIGN OF A COLD SORE 12 Tablet 10/16/2023 Active loratadine (CLARITIN) 10 MG tablet Take 1 Tablet (10 mg) by mouth daily. 90 Tablet 1 11/26/2023 Active omeprazole (PRILOSEC) 20 MG capsuleIndications:Ga stroesophageal reflux disease without esophagitis TAKE ONE CAPSULE BY MOUTH DAILY 1 HOUR BEFORE A MEAL 90 Capsule 12/27/2023 Active Active Problems Problem Noted Date Diagnosed [...] LW Modifier: s/p epidural injection LW Onset: 50Ycp36 ; Herniated Disc Family history of pulmonary embolism Overview (02/25/2019): Two sisters Resolved Problems Problem Noted Date Diagnosed Date Resolved Date Mild intermittent asthma, uncomplicated 07/14/2020 04/17/2021 Primary osteoarthritis of left knee 11/16/2018 09/01/2019 Pain due to total right knee replacement 11/16/2018 03/25/2019 Primary osteoarthritis of both knees 03/11/2012 03/25/2019 Symptomatic menopausal or fe male climacteric states 03/26/2004 08/09/2005 Overview (02/05/2017): LW Onset: 59Kht10 ; Hot Flashes Diverticulosis of large intestine 03/26/2004 01/31/2015 Overview (02/05/2017): Diverticulosis Colon Herpes simplex virus (HSV) infection 03/26/2004 05/26/2004 Overview (02/05/2017): LW Onset: 51Hfn87 ; Herpes Simplex Labialis Encounters Date Type Department Care Team Description 12/27/2023 Refill [facility] [address] [place] [address] Carin Hollis MD Refill (omeprazole (PRILOSEC) 20 MG capsule [Pharmacy Med Name: OMEPRAZOLE 20MG CAPSULES]) from Last 3 Months Immunizations Name Administration Dates Next Due Flu Vac (3+ yrs) 03/11/2012,02/26/2011 Flu Vac Preserv Free (3+yrs) 03/11/2012,02/10/20 09 Influenza (Fluzone 0.25, 6-35 mos) 03/12/2013 Influenza IIV3 (Trivalent) F luzone Highdose, 65+ Yrs (07798) 03/09/2020,03/04/2019,03/19/2018, 017,03/06/2016,03/29/2015 Influenza IIV4 (Quadrivalent ) 0.5mL (72999) 03/25/2022,03/04/2019,03/19/2018, 017,03/06/2016,03/29/2015,03/14/2014,,03/11/2012,02/26/2011 Influenza IIV4 (Quadrivalent ) Fluad, [...] T Respiratory Rate 20 07/14/2020 9:58 AM ASSISTANT ACTIVITIES DIRECTOR Oxygen Saturation 97% 04/16/2023 9:51 AM CDT Inhaled Oxygen Concentration - - Weight 86.9 kg (191 lb 9.6 oz) 04/16/2023 9:51 A M CDT Height 161.3 cm (5' 3.5) 04/16/2023 9:51 AM CDT Body Mass Index 33.41 04/16/2023 9:51 AM CDT Plan of Treatment Upcoming Encounters Date Type Department Care Team (Late st Contact Info) Description 04/22/2024 9:20 AM ASSISTANT ACTIVITIES DIRECTOR Appointment [place] [facility] [place] [address] [address] [place] [phone] [place] [address] [place] [address] 04/22/2024 10:00 AM ASSISTANT ACTIVITIES DIRECTOR Appointment [facility] [address] [place] [address] 04/22/2024 11:00 AM ASSISTANT ACTIVITIES DIRECTOR Appointment [facility] [id number] [place] [address] [place] [address] [place] [address] Health Maintenance Due Date Last Done Comments Lung Cancer Screening 02/11/2023 02/11/2022 (Completed), 03/19/2021 (Completed), 03/28/2020 Colonoscopy 08/29/2023 08/28/2018 (Comp leted), 09/06/2013 (Completed) Dexa 09/11/2023 09/10/2021, 12/15, 12/31/2017, Additional history exists Medicare Annual Wellness Visit 11/07/2023 11/06/2022, 09/14/2021, 09/06/2020, Additional history exists Prediabetes: HGBA1C 11/08/2023 11/07/2022, 09/14/2021, 09/07/2020, Additional history exists COVID-19 Vaccine ( season) 2024 04/01/2022, 06/28/2021, 09/13/2020, Additional history exists Influenza (#1) 2024 02/28/2023, 03/16, 03/25/2022, Additional history exists Mammogram 03/12/2024 03/12/2023, 02/15, 03/08/2021, Additional history exists RSV (1 - 1-dose 75+ series) 2025 Cholesterol 11/14/2027 11/13/2022, 06/2021, 09/07/2020, Additional history exists DTaP/Tdap/Td (3 - Tdap) 03/25/2029 03/25/20 19, 02/09/2009, 07/16/1999 Pneumococcal 65+ Yrs Completed 07/30/2016, 08/09/19 16 Hep C Screening (Preventive Services) Completed 08/05/2017 Zoster/Shingles Completed 03/11/2023, 12/15, 03/12/2013 HepA Aged [...] ANTIBODY, WITH REFLEX Routine 08/05/2017 10:28 AM ASSISTANT ACTIVITIES DIRECTOR Routine physical examination from Last 3 Months [...] Direct LDL(If Needed) (11/13/2022 9:27 AM CDT) Pathologist [facility] Cholesterol 177 0 - 199 mg/dL 11/13/2022 3:02 PM CDT [facility] Triglyceride 97 <=149 mg/dL 11/13/2022 3:02 PM T [facility] HDL Cholesterol 57 >=40 mg/dL 3 3:02 PM T [facility] LDL, Calculated 101 <130 mg/dL 3 3:02 PM T [facility] Non HDL Chol, Calculated 120 <=159 mg/dL 11/13/2022 3:02 PM T [facility] Cholesterol/HDL Ratio 3.1 11/13/2022 3:02 PM T [facility] Hours Fasting 12 11/13/2022 3:02 PM T [facility] Blood Venipuncture / Unknown 11/13/2022 9:27 AM CDT 11/13/2022 9:27 AM CDT Carin Hollis MD LAB_1 [facility] [address] [place] [address], [facility] [phone] [facility] [address] [place] [address], [facility] [phone] * (ABNORMAL) Hgb A1C (11/07/2022 8:03 AM CDT) [facility] Signature Hemoglobin A1C 6.0(H) <=5.6 % 11/07/2022 4:58 PM T [facility] Estimated Average Glucose (Calc) 126 < 117 mg/dL 11/07/2022 4:58 PM T [facility] Comment:Estimated average gl ucose (eAG) converts A1c into glucose units (mg/dL) and estimates average glucose over the past approximately 3 months. The eAG reference interval (<117 mg/dL) corresponds to an A1c of <5.7%. Blood Venipuncture / Unknown 11/07/2022 8:03 AM CDT 11/07/2022 8:03 AM CDT Narrative [facility] - 11/07/2022 4:58 PM CDT For patients not previously diagnosed with diabetes: 5.7-6.4%: Increased risk for diabetes 6.5% and greater: Diagnostic for diabetes For patients diagnosed with diabetes: <8.0%: Goal of therapy for ages 18-75 Clinicians may recommend a higher or lower goal for specific individuals. Carin Hollis MD [facility] [address] [place] [address], [facility] [phone] * DXA Bone Density Spine/Hip Inc Vert FX Assess (09/10/2021 2:56 PM CDT) Anatomical Region Laterality Modality Spine, Hip Radiographic Laila ging Narrative 09/19/2021 10:33 AM CDT CLINIC DXA REPORT Patient Name: ??Latoya Nielsen Gogodaniel Densitometer: ??HoloTheatro Horizon W (S/N [id number]) ABEL BONE OSTEOPOROSIS RISK FACTORS FROM PATIENT [...] trabecular bone, and is derived from the aigvw-bm-rwbvj changes of bone density embedded in the [...] Several small subpleural nodules as above. 2. Bbrc-na-rtycjgnh fibrotic changes as above, suggest correlating with pulmonary function tests. ACR Lung-RADS Category 2: Benign appearance or behavior. Nodules with a very low likelihood of becoming a clinically active cancer due to size or lack of growth. Continue annual screening with low-dose chest CT in 12 months. Katina Dotson DO RAD CT * Hepatitis C Antibody, with Reflex (08/05/2017 10:28 AM ASSISTANT ACTIVITIES DIRECTOR) Hepatitis C Antibody Nonreactive Nonreactive PN SOFT 08/05/2017 10:2 8 AM ASSISTANT ACTIVITIES DIRECTOR 08/05/2017 1:26 PM ASSISTANT ACTIVITIES DIRECTOR Narrative PN SOFT - 08/05/2017 2:41 PM ASSISTANT ACTIVITIES DIRECTOR Performed at [address] [address] CLIA number [id number] Lisa Hoyt MD LAB_[address] [place] [address] from Last 3 Months or Most Recently Relevant to Health Maintenance Advance Directives Documents on File Type Date Recorded Patient Career Consultant Expl anation Advance Directive/Living Will/Durable Power of Attny on file/POLST PN 01/28/2013 1:14 PM * Full Code (Latest Code Status on File) Date Activated Date Inactivated Comments 07/03/2017 4:01 PM 07/03/2017 8:43 PM Care Teams Bridge Instructor Relationship Specialty Start [place] [address] [address] [place] [address] PCP - General Family Practice 04/16/23
--- OUTSIDE RECORDS SUMMARY | 2024-03-15 09:03 | XMS_ITS | Continuity of Care Document ---
Author Organization [facility] Address [address] [address] [place] [address] Phone Care Team Providers Care Arts And Crafts Teacher Name Role Phone Jevon Bhandari CRNA Unavailable Unavailab le Allergies, Adverse Reactions, Alerts Substance Reaction Status Criticality No Known Allergies Active No Inform ation Medications Medication Instructions Dosage Effective Dates (start - stop) Status Comments loratadine 10 mg tablet take 1 tablet by oral route every day 10 MG - Active simvastatin 20 mg tablet take 1 tablet [...] Date Colorectal Ca Screen Hi Risk I 24 Colorectal Ca Screen Hi Risk I Colorectal Ca Screen Hi Risk I 19 Colonoscopy Flex; Dx (sep Pro) 14 Colonoscopy Flex; W/bx 1/mx Level Iv-surg Path Gross/micro 09 Advance Directives Directive Yes / No Effective Date File Name No Information Encounters Encounter Description Practice Location Reason(s) For Visit Diagnoses Date Provider Providers Copied on Encounter [facility], [address] [address], [place], [id number], [place] tel:[phone] [facility] No Information 4 Thony RANJAN Jevon. [address] [facility], [facility] [place] [id number], [place]. tel:[phone] Referring Provider: Jojo Sher MD, [address] [facility] [address], [facility] [place], [address] . tel:[phone] [facility] [address] [address], [place], [id number], [place] tel:[phone] [facility] GI Symptoms or Concerns (chief complaint) Personal history of colonic polypsDvrtclos of lg int w/o perforation or abscess w/o bleedingEncounter for screening for malignant neoplasm of colonPersonal history of colonic polypsDvrtclos of lg int w/o perforation or abscess w/o bleeding 4 Christos Uribe. [address] [facility], [facility] [place], [id number], [place]. tel:[phone] Referring Provider: Referral Self, USE FOR SELF REFERRALS. [facility], [address] [address], [place], [place], [id number], [place] tel:[phone] [facility] No Information 4 Christos Uribe. [address] [facility] [address], [place], [id number], [place]. tel:[phone] [facility], [address] [address], [place], [address], [place] tel:[phone] [facility] [place] Diverticulosis of colonHistory of adenomatous polyp of colonEncounter for screening for malignant neoplasm of colonDvrtclos of lg int w/o perforation or abscess w/o bleedingPersonal history of colonic polyps 9 Pablo Arias. [address] [facility] [address], [place], [place], [address], [place]. tel:[phone] Referring Provider: [place], [address], [place], [address]. tel:[phone] [facility], [address] [address], [place], [address], [place] tel:[phone] [facility] Personal history of colonic polypsEncounter for screening for malignant neoplasm of colonPersonal history of colonic polyps 9 Danita Bautista. [address] [facility] [address], [place], [address], [place]. tel:[phone] Referring Provider: [place], [address], [place], [address]. tel:[phone] [facility], [address] [address], [place], [place], [id number], [place] tel:[phone] [facility] Diverticulosis Of ColonPersonal History Colon PolypsDiverticulos is Of ColonPersonal History Colon Polyps 2 4 Arlette Kim. [address] [facility] [address], [place], [address], [place]. tel:[phone] Referring Provider: Fariba Ross [address] SAFETY ENGINEER, [address] [facility], [place], [address]. tel:[phone] [facility], [address] [address], [place], [id number], [place] tel:[phone] [place] [facility] Colon Cancer ScreeningDiverticu losis Of ColonRectal Polyp/Benign 9 Pablo Arias. [address] [facility], [place], [id number], [place]. tel:[phone] Referring Provider: Jessica Phillip MD S, [address], [place], [address] . tel:[phone] Family History Family Member Type Diagnosis Age At Onset Father Problem (finding) Mother Problem (finding) diverticulitis of colon Sister Problem (finding) diverticulitis of colon Sister Problem (finding) Crohn's disease Sister Problem (finding) malignant neop lasm of breast in first degree relative Sister Problem (finding) Cancer Sister Problem (finding) Irritable bowel syndrom e Sister Problem (finding) Alive and well Son Problem (finding) Alive and well Brother Problem (finding) Alive and well Sister Problem (finding) Colon polyps Immunizations Vaccine Date Status Comments zoster vaccine recombinant administered N ote: [facility] bi-directional interface ; Source: Other Registry influenza, high-dose seasona l, quadrivalent, 0.7mL dose, preservative free administered Note: [facility] bi-direct ional interface ; Source: Other Registry zoster vaccine recombinant administered N ote: [facility] bi-directional interface ; Source: Other Registry SARS-COV-2 (COVID-19) vaccin e, mRNA, spike protein, LNP, bivalent, preservative free, 50 mcg/0.5 mL or 25 mcg/0.25 mL dose administered Note: [facility] bi-direct ional interface ; Source: Other Registry influenza, seasonal vaccine, quadrivalent, adjuvanted, 0.5mL dose, preservative free administered Note: [facility] bi-di rectional interface ; Source: Other Registry SARS-COV-2 (COVID-19) vaccin e, mRNA, spike protein, LNP, preservative free, 100 mcg/0.5mL dose or 50 mcg/0.25mL dose administered Note: [facility] bi -directional interface ; Source: Other Registry influenza, high-dose seasona l, quadrivalent, 0.7mL dose, preservative free administered Note: [facility] bi-direct ional interface ; Source: Other Registry SARS-COV-2 (COVID-19) vaccin e, mRNA, spike protein, LNP, preservative free, 100 mcg/0.5mL dose or 50 mcg/0.25mL dose administered Note: [facility] bi -directional interface ; Source: Other Registry SARS-COV-2 (COVID-19) vaccin e, mRNA, spike protein, LNP, preservative free, 100 mcg/0.5mL dose or 50 mcg/0.25mL dose administered Note: [facility] bi -directional interface ; Source: Other Registry influenza, high dose seasona l, preservative-free administered Note: [facility] bi-direct ional interface ; Source: Other Registry influenza, high dose seasona l, preservative-free administered Note: [facility] bi-direct ional interface ; Source: Other Registry influenza, high dose seasona l, preservative-free administered Note: [facility] bi-direct ional interface ; Source: Other Registry Pneumovax administered Note: [facility] bi-d irectional interface ; Source: Other Registry influenza, high dose seasona l, preservative-free administered Note: [facility] bi-direct ional interface ; Source: Other Registry Prevnar administered Note: [facility] bi-d irectional interface ; Source: Other Registry influenza, high dose seasona l, preservative-free administered Note: [facility] bi-direct ional interface ; Source: Other Registry Afluria Qd administered Note: M [facility] bi-directional interface ; Source: Other Registry Influenza, injectable,quadrivalent, preservative free, pediatric administered Note: [facility] bi-directional interface ; Source: Other Registry zoster vaccine, live administered Note: M [facility] bi-directional interface ; Source: Other Registry Influenza, seasonal, injectable administe red Note: [facility] bi- directional interface ; Source: Other Registry Influenza, seasonal, injectable administe red Note: [facility] bi- directional interface ; Source: Other Registry tetanus toxoid, reduced diphtheria toxoid, and acellular pertussis vaccine, adsorbed administered Note: [facility] b i-directional interface ; Source: Other Registry Payers Payer name Insurance type Covered alliance party ID Authoriza tion(s) Blue [employer] Medicare Advantage [id number] Social History Type Description Quantity Date Captured Comments Sex Female Smoking Status No Information Chief Complaint And Reason For Visit No Information Reason For Referral Reason For Referral No Information History Of Present Illness Encounter Date Complaint History Of Prese nt Illness GI Symptoms or Concerns Functional Status Date Functional Assessmen t No Information Instructions Date Instruction Additional Infor mation Diverticulosis/Diverticulitis Re lated to 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
--- NOTE | 2024-03-15 09:15 | CRLHL7_ITS ---
For Patients: As a result of the Century Cures Act, medical imaging exams and procedure reports are released immediately into your electronic medical record. You may view this report before your referring provider. If you have questions, please contact your health care provider. BILATERAL DIGITAL SCREENING MAMMOGRAM WITH COMPUTER-AIDED DETECTION AND TOMOSYNTHESIS CLINICAL HISTORY: Routine screening exam. COMPARISON: 03/08/2021, 03/11/2022, 03/12/2023. TECHNIQUE: Digital mammogram in CC and MLO projections including computer-aided detection (CAD). Tomosynthesis was used in this interpretation. BREAST COMPOSITION: There are scattered areas of fibroglandular density. FINDINGS: RIGHT Breast: Focal asymmetric density within the lower inner quadrant 4 cm from the nipple. LEFT Breast: No suspicious findings. IMPRESSION: RIGHT breast asymmetry/mass. RECOMMENDATIONS: Additional mammographic views of the RIGHT breast including 3D spot compression CC/MLO. RIGHT breast ultrasound may also be required. BI-RADS Category 0: Incomplete: Need Additional Imaging Evaluation and/or Prior Mammograms for Comparison [facility] will contact the patient for follow-up. A lay language report of this examination will be provided to the patient. Dictated by Ryan Burks MD @ 03/19/2024 8:45:42 AM jj/Dictated by: Ryan Burks MD @ 03/19/2024 8:48:00 AM (Electronically Signed)
== END 2024-03-15 08:48 | disposition home or self-care (01) ==
LOC: MAMMO 08:48
PROVIDERS: PCP Internal Medicine; Visit Provider Internal Medicine
DX: Z12.31 Encounter for screening mammogram for malignant neoplasm of breast (principal); N63.10 Unspecified lump in the right breast, unspecified quadrant
CPT/HCPCS: 77063; 77067

== ENCOUNTER 2024-03-22 11:01 | Outpatient (CLI) | payer MEDICARE, SELFPAY ==
--- NOTE | 2024-03-22 11:00 | CRLHL7_ITS ---
For Patients: As a result of the Cures Act, medical imaging exams and procedure reports are released immediately into your electronic medical record. You may view this report before your referring provider. If you have questions, please contact your health care provider. DIGITAL DIAGNOSTIC RIGHT MAMMOGRAM USING TOMOSYNTHESIS AND COMPUTER-AIDED DETECTION RIGHT BREAST ULTRASOUND CLINICAL HISTORY: RIGHT breast mass/asymmetry. COMPARISON: 03/15/24, 03/12/23, 03/11/22. TECHNIQUE: Digital RIGHT mammogram in two projections. Tomosynthesis and CAD were used in this interpretation. Real-time ultrasound imaging of RIGHT breast with imaging documentation. Scanning was performed by both the technologist and the radiologist. BREAST COMPOSITION: There are scattered areas of fibroglandular density. FINDINGS: 3D spot compression CC/MLO RIGHT breast mammogram images submitted. Decreased conspicuity of previously noted asymmetric density. Post lumpectomy changes. Benign calcifications. Targeted RIGHT breast ultrasound performed 4 o`clock 4 cm from the nipple. Scar tissue is present related to prior lumpectomy. No fluid collection. Benign shadowing calcification incidentally noted. IMPRESSION: No suspicious findings. Postop changes lumpectomy with scar tissue. RECOMMENDATIONS: Annual BILATERAL screening mammography. Results and recommendations discussed with the patient. BI-RADS Category 2: Benign A lay language report of this examination will be provided to the patient. Dictated by Ryan Burks MD @ 03/22/2024 11:46:34 AM jj/Dictated by: Ryan Burks MD @ 03/22/2024 11:46:00 AM (Electronically Signed)
--- OUTSIDE RECORDS SUMMARY | 2024-03-22 11:04 | XMS_ITS | Encounter Summary ---
Author Organization [facility] Address [address] [place] [address] Care Team Providers Care Vehicle Technician Name Role Phone Carin Hollis MD Primary Care Provider [phone] Reason for Visit * Reason Comments Refill omeprazole (PRILOSEC ) 20 MG capsule [Pharmacy Med Name: OMEPRAZOLE 20MG CAPSULES] Encounter Details Date Type Department Care Team (Late st Contact Info) Description 12/27/2023 Refill [facility] Medicine [id number] [place] [address] Carin Hollis MD [address] [place] [phone] Refill (omeprazole (PRILOSEC) 20 MG capsule [Pharmacy [...] CDT Further Assistance Needed on Refill from Medicare Sales Representative Patient is due for Qualifying Visit. Last [...] CARIN HOLLIS) Next scheduled visit: [facility] Embedded Refills, Reference: [id number], 12/27/2023 8:07:03 AM Nicolas ROWLEY: MARIA Refill [facility] - Primary Care [[id number]] ([id number]) documented in this encounter Plan of Treatment Upcoming Encounters Date Type Department Care Team (Late st Contact Info) Description 04/22/2024 9:20 AM SQL PROGRAMMER Appointment [place] [facility] [place] [address] Scan [address] [place] [phone] Pham Hansen MD [address] [place], [place] [address] 04/22/2024 10:00 AM SQL PROGRAMMER Appointment [facility] [address] [place], [place] [address] 04/22/2024 11:00 AM SQL PROGRAMMER Appointment [facility] [address] [place], [place] [address] Pham Hansen MD [address] [place], [place] [phone] documented as of this encounter Visit Diagnoses Diagnosis Gastroesophageal reflux disease without esophagitis Esophageal reflux documented in this encounter Care Teams Vehicle Technician Relationship Specialty Start [place] [address] [facility] [place] [address] PCP - General Family Practice 04/16/23 documented as of this encounter
--- OUTSIDE RECORDS SUMMARY | 2024-03-22 11:04 | XMS_ITS ---
Author Organization [employer] Address [address] [place] [address] Care Team Providers Care Tool And Equipment Rental Clerk Name Role Phone Carin Hollis MD Primary Care Provider [phone] Active Problems Problem Noted Date Diagnosed Date [...] LW Modifier: s/p epidural injection LW Onset: 66Hrb58 ; Herniated Disc Family history of pulmonary embolism Overview (02/25/2019): Two sisters Current Oncology Plans No current plan information found. Past Plans Radiation Treatments * No radiation treatments are documented for this patient in [facility]. Treatments may have been administered in another system. Resolved Problems Problem Noted Date Diagnosed Date Resolved Date Mild intermittent asthma, uncomplicated 07/14/2020 04/17/2021 Primary osteoarthritis of left knee 11/16/2018 09/01/2019 Pain due to total right knee replacement 11/16/2018 03/25/2019 Primary osteoarthritis of both knees 03/11/2012 03/25/2019 Symptomatic menopausal or fe male climacteric states 03/26/2004 08/09/2005 Overview (02/05/2017): LW Onset: 01Pvy25 ; Hot Flashes Diverticulosis of large intestine 03/26/2004 01/31/2015 Overview (02/05/2017): Diverticulosis Colon Herpes simplex virus (HSV) infection 03/26/2004 05/26/2004 Overview (02/05/2017): LW Onset: 38Ayo06 ; Herpes Simplex Labialis
--- OUTSIDE RECORDS SUMMARY | 2024-03-22 11:04 | XMS_ITS | Clinical Summary ---
Author Organization [employer] Address [address], [place] [address] Care Team Providers Care Research Spec Name Role Phone Carin Hollis MD Primary Care Provider [phone] Source Comments You are receiving this document as you are listed as the primary care provider,follow-up provider, or the patient has been referred to you for consultation.This is in compliance with the Medicare and[facility] EHR Incentive [facility],which states Providers who transition their patient to another setting of careor provider of care or refers their patient to another provider of care shouldprovide summary care record for each transition of care or referral. [employer] Allergies No known active allergies Medications Medication [...] LW Modifier: s/p epidural injection LW Onset: 39Czc11 ; Herniated Disc Family history of pulmonary embolism Overview (02/25/2019): Two sisters Resolved Problems Problem Noted Date Diagnosed Date Resolved Date Mild intermittent asthma, uncomplicated 07/14/2020 04/17/2021 Primary osteoarthritis of left knee 11/16/2018 09/01/2019 Pain due to total right knee replacement 11/16/2018 03/25/2019 Primary osteoarthritis of both knees 03/11/2012 03/25/2019 Symptomatic menopausal or fe male climacteric states 03/26/2004 08/09/2005 Overview (02/05/2017): LW Onset: 79Bmx67 ; Hot Flashes Diverticulosis of large intestine 03/26/2004 01/31/2015 Overview (02/05/2017): Diverticulosis Colon Herpes simplex virus (HSV) infection 03/26/2004 05/26/2004 Overview (02/05/2017): LW Onset: 36Ixq98 ; Herpes Simplex Labialis Encounters Date Type Department Care Team Description 12/27/2023 Refill [facility] [address] [place] [address] Carin Hollis MD Refill (omeprazole (PRILOSEC) 20 MG capsule [Pharmacy Med Name: OMEPRAZOLE 20MG CAPSULES]) from Last 3 Months Immunizations Name Administration Dates Next Due Flu Vac (3+ yrs) 03/11/2012,02/26/2011 Flu Vac Preserv Free (3+yrs) 03/11/2012,02/10/20 09 Influenza (Fluzone 0.25, 6-35 mos) 03/12/2013 Influenza IIV3 (Trivalent) F luzone Highdose, 65+ Yrs (17754) 03/09/2020,03/04/2019,03/19/2018, 017,03/06/2016,03/29/2015 Influenza IIV4 (Quadrivalent ) 0.5mL (99638) 03/25/2022,03/04/2019,03/19/2018, 017,03/06/2016,03/29/2015,03/14/2014,,03/11/2012,02/26/2011 Influenza IIV4 (Quadrivalent ) Fluad, [...] T Respiratory Rate 20 07/14/2020 9:58 AM SUBSTATION OPERATOR CONVERSION Oxygen Saturation 97% 04/16/2023 9:51 AM CDT Inhaled Oxygen Concentration - - Weight 86.9 kg (191 lb 9.6 oz) 04/16/2023 9:51 A M CDT Height 161.3 cm (5' 3.5) 04/16/2023 9:51 AM CDT Body Mass Index 33.41 04/16/2023 9:51 AM CDT Plan of Treatment Upcoming Encounters Date Type Department Care Team (Late st Contact Info) Description 04/22/2024 9:20 AM SUBSTATION OPERATOR CONVERSION Appointment [facility] [place] [address] [address] Scan [address] [place] [phone] [place] [address] [place] [address] 04/22/2024 10:00 AM SUBSTATION OPERATOR CONVERSION Appointment [facility] [address] [place] [address] 04/22/2024 11:00 AM SUBSTATION OPERATOR CONVERSION Appointment [facility] [address] [place] [address] [place] [address] [place] [address] Health Maintenance Due Date Last Done Comments [...] on patient's age to complete this topic RSV Aged Out No longer eligi ble based [...] ANTIBODY, WITH REFLEX Routine 08/05/2017 10:28 AM SUBSTATION OPERATOR CONVERSION Routine physical examination from Last 3 Months [...] 0 - 199 mg/dL 11/13/2022 3:02 PM T [facility] Triglyceride 97 <=149 mg/dL 11/13/2022 3:02 PM T [facility] HDL Cholesterol 57 >=40 mg/dL 3 3:02 PM T [facility] LDL, Calculated 101 <130 mg/dL 3 3:02 PM [facility] Non HDL Chol, Calculated 120 <=159 mg/dL 11/13/2022 3:02 PM T [facility] Cholesterol/HDL Ratio 3.1 11/13/2022 3:02 PM T [facility] Hours Fasting 12 11/13/2022 3:02 PM T [facility] Blood Venipuncture / Unknown 11/13/2022 9:27 AM CDT 11/13/2022 9:27 AM CDT Carin Hollis MD LAB_1 [facility] [address] [place] [address], [facility] [phone] [facility] [address] [place] [address], [facility] [phone] * (ABNORMAL) Hgb A1C (11/07/2022 8:03 AM CDT) [facility] Signature Hemoglobin A1C 6.0(H) <=5.6 % 11/07/2022 4:58 PM T [facility] Estimated Average Glucose (Calc) 126 < 117 mg/dL 11/07/2022 4:58 PM T [facility] Comment:Estimated average gl ucose (eAG) converts A1c into glucose units (mg/dL) and estimates average glucose over the past approximately 3 months. The eAG reference interval (<117 mg/dL) corresponds to an A1c of <5.7%. Blood Venipuncture / Unknown 11/07/2022 8:03 AM CDT 11/07/2022 8:03 AM CDT Narrative [facility] - 11/07/2022 4:58 PM CDT For patients not previously diagnosed with diabetes: 5.7-6.4%: Increased risk for diabetes 6.5% and greater: Diagnostic for diabetes For patients diagnosed with diabetes: <8.0%: Goal of therapy for ages 18-75 Clinicians may recommend a higher or lower goal for specific individuals. Carin Hollis MD LAB_1 [facility] [address] [place] [address], [facility] [phone] * DXA Bone Density Spine/Hip Inc Vert FX Assess (09/10/2021 2:56 PM CDT) Anatomical Region Laterality Modality Spine, Hip Radiographic Laila ging Narrative 09/19/2021 10:33 AM CDT CLINIC DXA REPORT Patient Name: ??Latoya Nielsen Gogodaniel Densitometer: ??Hologic Horizon W (S/N [id number]) ABEL BONE OSTEOPOROSIS RISK FACTORS FROM PATIENT [...] trabecular bone, and is derived from the kpuzy-hf-nvesp changes of bone density embedded in the [...] Several small subpleural nodules as above. 2. Ntzp-qm-poslcstk fibrotic changes as above, suggest correlating with pulmonary function tests. ACR Lung-RADS Category 2: Benign appearance or behavior. Nodules with a very low likelihood of becoming a clinically active cancer due to size or lack of growth. Continue annual screening with low-dose chest CT in 12 months. Katina Dotson DO RAD CT * Hepatitis C Antibody, with Reflex (08/05/2017 10:28 AM SUBSTATION OPERATOR CONVERSION) Hepatitis C Antibody Nonreactive Nonreactive PN SOFT 08/05/2017 10:2 8 AM SUBSTATION OPERATOR CONVERSION 08/05/2017 1:26 PM SUBSTATION OPERATOR CONVERSION Narrative PN SOFT - 08/05/2017 2:41 PM SUBSTATION OPERATOR CONVERSION Performed at [address] [address] CLIA number [id number] Lisa Hoyt MD LAB_1 PN SOFT [address] [place] [address] from Last 3 Months or Most Recently Relevant to Health Maintenance Advance Directives Documents on File Type Date Recorded Patient Steelworker Expl anation Advance Directive/Living Will/Durable Power of Attny on file/POLST PN 01/28/2013 1:14 PM * Full Code (Latest Code Status on File) Date Activated Date Inactivated Comments 07/03/2017 4:01 PM 07/03/2017 8:43 PM Care Teams Research Spec Relationship Specialty [place] [address] [place] [address] PCP - General Family Practice 04/16/23
--- OUTSIDE RECORDS SUMMARY | 2024-03-22 11:04 | XMS_ITS | Continuity of Care Document ---
Author Organization [facility] Address [address] [place] [address] Phone Care Team Providers Care Bridge Crew Member Name Role Phone Clinton Garcia MD Unavailable [...] ient Visit,Est, Low [facility], [address], [place], [place], [id number], [place] tel:[phone] [facility] Other spondylosis, lumbar regionOther spondylosis, cervical region Jose Alonzo. [facility] , [address] [facility] , [place], [address], [place]. tel:[phone] Referring Provider: Carlos Umanzor, [facility] [address], [place], [address]. tel:[phone] Office/Outpat ient Visit,New, Mod [facility], [address], [place], [place], [id number], [place] tel:[phone] [facility] Other spondylosis, lumbar regionOther spondylosis, cervical region Christiano Gonzalez. [facility], [address] [place] [address] [address], [place], [place], [id number], [place]. tel:[phone] Referring Provider: Carlos Umanzor, [facility] [address], [place], [address]. tel:[phone] Family History Family Member Type Diagnosis Age At Onset No Information Payers Payer name Insurance type Covered [id number] Medicare [facility] [id number] Social History Type Description Quantity Date [...]
--- OUTSIDE RECORDS SUMMARY | 2024-03-22 11:04 | XMS_ITS | Encounter Summary ---
Author Organization [employer] Address [address], [place] [address] Care Team Providers Care Outdoor Power Equipment Mechanic Name Role Phone Carin Hollis MD Primary Care Provider [phone] Encounter Details Date Type Department Care Team (Late st Contact Info) Description 12/02/2011 Orders Only [facility] [address] [place], [place] [phone] Wood Cloud MD [address] [place], [place] [phone] Social History Tobacco Use Types Packs/Day Years Used Date Smoking Tobacco: Never Assessed Sex and Gender Information Value Date Recorded Sex Assigned at Not on file Gender Identity Not on file Sexual Orientation Not on file documented as of this encounter Plan of Treatment Upcoming Encounters Date Type Department Care Team (Late st Contact Info) Description 04/22/2024 9:20 AM FRUIT CANNER Appointment [facility] [address] [address] [address] [place] [phone] Pham Hansen MD [address] [place], [place] [address] 04/22/2024 10:00 AM FRUIT CANNER Appointment [facility] [address] [place] [address] 04/22/2024 11:00 AM FRUIT CANNER Appointment [facility] [address] [place] [address] Pham Hansen MD [address] [place] [address] documented as of this encounter Visit Diagnoses Not on filedocumented in this encounter Additional Health Concerns Infection Onset Date Last Indicated Resolved Time R/O COVID19 04/17/2021 04/17/2021 04/18/2021 8:46 AM CDT documented as of this encounter Care Teams Outdoor Power Equipment Mechanic Relationship Specialty [place] [address] [place] [address] PCP - General Family Practice 04/16/23 documented as of this encounter
--- OUTSIDE RECORDS SUMMARY | 2024-03-22 11:04 | XMS_ITS | Clinical Summary ---
Author Organization [employer] Address [place], [place] [address] Care Team Providers Care Tank House Operator Name Role Phone Lisa Hoyt Primary Care Provider [phone] Allergies Active Allergy Reactions Criticality Noted Date [...] for age 65+ 2015 COVID-19 vaccine series (2023- season) 2024 04/01/2022, 06/28/2021, 09/13/2020, Additional history exists Influenza for age 65+ 02/15/2024 03/25/2022 , 03/09/2021, 03/09/2020 Tetanus booster 03/25/2029 03/25/2019, 03/16, 02/09/2009 Tdap Completed 02/09/2009 Pneumococcal series for age 65+ Completed 7, 08/09/2015 Medical Devices Implanted Type Area Counter Pocket Trimmer Device Identifier Shelf Expiration Date Model / Serial / Lot Patella Sz32 Brenna Ii Rnd Penon Pors - [id number] Implanted:Qty: 1 on 03/31/2018 by Herman Oconnor MD at [facility] Total Joint Right: Knee [employer] 01/19/2028# / / [id number] Patella Sz32 Brenna Ii Rnd Penon Pors - [id number] Implanted:Qty: 1 on 04/01/2019 by Herman Oconnor MD at [facility] Total Joint Left: Knee [employer] 08/16/2028# / / [id number] Cmnt Bone 40g Simplex Hv Gentamicin - [id number] Implanted:Qty: 1 on 03/31/2018 by Herman Oconnor MD at [facility] Right: Knee [employer] 01/14/2020 [id number]# / / [id number] Baseplate Tib Rt Sz5 Academic Services Coordinator Journey - [id number] Implanted:Qty: 1 on 03/31/2018 by Herman Oconnor MD at [facility] Right: Knee [employer] 12/29/2027 [id number]# / / [id number] Bi-Cruciate Stabilized Right Size 7, Femoroal Component, Journey Ii Bcs Implanted:Qty: 1 on 03/31/2018 by Herman Oconnor MD at [facility] Right: Knee [employer] 01/21/2027 [id number] / / [id number] Cmnt Bone Simplex Hv - [id number] Implanted:Qty: 1 on 03/31/2018 by Herman Oconnor MD at [facility] Right: Knee [employer] 11/14/2019 [id number]# / / [id number] Insert Knee Rt Sz5-6 9mm Journey Ii Bcs Bi Cruc Stbz - [id number] Implanted:Qty: 1 on 03/31/2018 by Herman Oconnor MD at [facility] Right: Knee [employer] 11/26/2025 [id number]# / / [id number] Insert Knee Lt Sz5-6 11mm Journey Ii Bcs Bi Cruc Stbz - [id number] Implanted:Qty: 1 on 04/01/2019 by Herman Oconnor MD at [facility] Left: Knee [employer] 12/09/2027 [id number]# / / [id number] Baseplate Tib Lt Sz 5 Academic Services Coordinator Journey - [id number] Implanted:Qty: 1 on 04/01/2019 by Herman Oconnor MD at [facility] Left: Knee [employer] 02/21/2029 [id number]# / / [id number] Cmnt Bone 40g Simplex Hv Gentamicin - [id number] Implanted:Qty: 1 on 04/01/2019 by Herman Oconnor MD at [facility] Left: Knee [employer] 09/13/2020 [id number]# / / [id number] Cmnt Bone Simplex Hv - [id number] Implanted:Qty: 1 on 04/01/2019 by Herman Oconnor MD at [facility] Left: Knee [employer] 09/13/2020 [id number]# / / [id number] Fem Lt Sz7 Journey Ii Bcs Oxin - [id number] Implanted:Qty: 1 on 04/01/2019 by Herman Oconnor MD at [facility] Left: Knee [employer] 11/09/2028 [id number]# / / [id number] Advance Directives Documents on File Type Date Recorded Patient Validation Scientist Expl anation Healthcare Directive 04/04/2018 7:47 PM * Full Code (Latest Code Status on File) Date Activated Date Inactivated Comments 04/01/2019 12:37 PM 04/02/2019 6:14 PM Question Answer Comments Code Status Discussion: Not Discussed * Full Code Date Activated Date Inactivated Comments 03/31/2018 6:04 AM 04/02/2018 6:29 PM Question Answer Comments Code Status Discussion: Not Discussed Care Teams Tank House Operator Relationship Specialty Start Date End Date Lisa Hoyt [address] [place] [address] PCP - General Internal Medicine 03/15/22
--- NOTE | 2024-03-22 11:30 | CRLHL7_ITS ---
For Patients: As a result of the Cures Act, medical imaging exams and procedure reports are released immediately into your electronic medical record. You may view this report before your referring provider. If you have questions, please contact your health care provider. PLEASE SEE DIGITAL DIAGNOSTIC RIGHT MAMMOGRAM PERFORMED SAME DAY CRL:pro mast/Dictated by: Ryan Burks MD @ 03/22/2024 11:59:00 AM (Electronically Signed)
== END 2024-03-22 11:02 | disposition home or self-care (01) ==
LOC: MAMMO 11:02
PROVIDERS: PCP Internal Medicine; Visit Provider Internal Medicine
DX: N63.10 Unspecified lump in the right breast, unspecified quadrant (principal); R92.8 Other abnormal and inconclusive findings on diagnostic imaging of breast
CPT/HCPCS: 76642; 77065; G0279

== ENCOUNTER 2024-11-09 08:48 | Outpatient (CLI) | payer MEDICARE, SELFPAY | END 2024-11-09 08:49 | disposition home or self-care (01) | LOC: NFLDREF 11-11 16:59 | PROVIDERS: PCP Internal Medicine; Referring Provider Internal Medicine; Visit Provider Internal Medicine | DX: M81.0 Age-related osteoporosis without current pathological fracture (principal); E78.5 Hyperlipidemia, unspecified | CPT/HCPCS: 80061; 82306 ==

== ENCOUNTER 2025-03-16 09:47 | Outpatient (CLI) | payer MEDICARE, SELFPAY ==
--- NOTE | 2025-03-16 10:15 | CRLHL7_ITS ---
For Patients: As a result of the Century Cures Act, medical imaging exams and procedure reports are released immediately into your electronic medical record. You may view this report before your referring provider. If you have questions, please contact your health care provider. INDICATION: BILATERAL SCREENING MAMMOGRAM, ASYMPTOMATIC 75 Y/O FEMALE COMPARISON: 03/22/2024, 03/15/2024, 03/12/2023 TECHNIQUE: Digital mammogram in CC and MLO projections including computer-aided detection (CAD) and tomosynthesis. BREAST COMPOSITION: There are scattered areas of fibroglandular density. FINDINGS: No suspicious findings. ASSESSMENT: BI-RADS 1 Negative RECOMMENDATION: Annual screening mammogram. A lay language report of this examination will be provided to the patient. Dictated by: Ryan Burks MD @ 03/16/2025 13:01:06 (Electronically Signed)
== END 2025-03-16 09:48 | disposition home or self-care (01) ==
LOC: MAMMO 09:48
PROVIDERS: PCP Internal Medicine; Visit Provider Internal Medicine
DX: Z12.31 Encounter for screening mammogram for malignant neoplasm of breast (principal)
CPT/HCPCS: 77063; 77067

== ENCOUNTER 2025-03-16 12:55 | Outpatient (CLI) | payer MEDICARE, SELFPAY | END 2025-03-16 12:56 | disposition home or self-care (01) | LOC: NFLDREF 03-18 15:46 | PROVIDERS: PCP Internal Medicine; Referring Provider Internal Medicine; Visit Provider Family Medicine | DX: R35.0 Frequency of micturition (principal); N39.0 Urinary tract infection, site not specified | CPT/HCPCS: 87086 ==